=== PATIENT | male | born 1955 | race Caucasian/White ===

== ENCOUNTER → 2016-03-22 | Outpatient (CLI) | payer BC | END | disposition home or self-care (01) | LOC: LABWHC1 12:12 | PROVIDERS: ATTEND Physician Assistant | DX: R53.83 Other fatigue (principal) | CPT/HCPCS: 36415; 84439; 84443 ==

== ENCOUNTER → 2016-11-23 | Outpatient (CLI) | payer BC ==
--- NOTE | 2016-11-24 15:36 | PE ---
EXAMINATION TYPE: PET CT fusion whole body DATE OF EXAM: 11/23/2016 COMPARISON: No additional images available at this location. Prior PET/CT: None HISTORY: Colorectal cancer TECHNIQUE: Following the intravenous administration of 13.26 mCi of F-18 FDG, whole body images are performed from the skull base to the midthigh. Images are reviewed on the computer in the coronal, a xial, and sagittal planes. Reconstructed rotating images are created on independent workstation and reviewed on the computer. A localization and attenuation correction CT is performed in conjunction with the PET scan. DLP: 407.70 mGycm SCAN: Initial Blood glucose: 75 mg/dL Average Mediastinum SUV: 1.2 Average Liver SUV: 1.8 FINDINGS: NECK: Some mild inflammatory changes within the facet hypertrophy in the upper cervical spine. THORAX: There is a small lymph node with mild increased uptake within the pretracheal space, at image 95. The SUV value is 1.6 which is intermediate and can be inflammatory. Additional similar peribronc hial mild uptake is present on the left measuring 2.1 on the right measuring 1.9. A mild right hilar uptake has an SUV value 1.8. ABDOMEN: No abnormal uptake PELVIS: There is marked increased uptake in the distal rectosigmoid region. This can be compatible wi th the patient's neoplasm. This has an SUV value of 8.6. Suspicious adenopathy is not identified. OSSEOUS STRUCTURES: No abnormal uptake LOCALIZATION CT: There is opacification of the right maxillary sinus. Facet changes are within the ce rvical spine. There are scattered small lymph nodes within the mediastinum and within the left axilla ry region. These are nonspecific and not enlarged by CT criteria. Monitoring is recommended. Coronary artery calcification is noted. Some pneumonitis changes in the posterior right lung base can be comp ressive atelectasis. The irregular thickening along the rectosigmoid junction likely related to patie nt's neoplasm is evident on the CT pelvis. COMPARISON: Not available IMPRESSION: 1. 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 2. Some vague intermediate signal within mediastinal and hilar lymph nodes within the chest most like ly in the inflammatory range. 3. Additional suspicious areas of uptake are not identified. No suspicious changes for metastatic dis ease are evident.
== END | disposition home or self-care (01) ==
LOC: RADPETMAIN 12:38
PROVIDERS: ATTEND Surgery
DX: C18.9 Malignant neoplasm of colon, unspecified (principal); R59.0 Localized enlarged lymph nodes; R94.8 Abnormal results of function studies of other organs and systems
CPT/HCPCS: 78816; A9552

== ENCOUNTER → 2020-01-25 | Outpatient (CLI) | payer MEDICARE ==
[2020-01-25 13:28] LABS: African American GFR (CKD) >90 (>60 ml/min/1.73 sqM); Blood Urea Nitrogen 14 mg/dL (9-20); Non-African American GFR(CKD) >90 (>60 ml/min/1.73 sqM)
--- NOTE | 2020-01-25 15:14 | CT ---
EXAMINATION TYPE: CT ChestAbdPelvis w con DATE OF EXAM: 01/25/2020 COMPARISON: PET/CT November 23, 2016 HISTORY: Rectal CA CT DLP: 777.7 mGycm. Automated Exposure Control for Dose Reduction was Utilized. CONTRAST: CT scan of the thorax, abdomen and pelvis is performed with oral and with IV Contrast, patient inject ed with 100 mL of Isovue 300. FINDINGS: LUNGS: Mild biapical scarring. Some dependent atelectasis in the right lower lobe. No suspicious nodu les or masses. There is no pleural effusion or pneumothorax seen. The tracheobronchial tree is paten t. MEDIASTINUM: There are persistent prominent thoracic lymph nodes including pretracheal, AP window chris r axial image 27, pericarinal region axial image 28, and bilateral hilar regions not significantly ch anged in size from prior PET/CT where they are essentially ametabolic. Normal enlarging lymph nodes clearly identified. No cardiomegaly or pericardial effusion is seen. Fairly moderate coronary artery calcification redemonstrated. Stable enlarged 1.2 x 1.0 cm lymph node anterior to ascending aorta axi al image 31. LIVER/GB: Scattered simple-appearing thin-walled cysts throughout the liver redemonstrated. Subcentim eter hypodense lesions also noted to small to further characterize likely stable. Liver is background heterogeneously low dense suggesting diffuse fatty infiltration. PANCREAS: No significant abnormality is seen. SPLEEN: Prominent splenule inferior splenic hilum axial image 66 redemonstrated.. ADRENALS: No significant abnormality is seen. KIDNEYS: Symmetric cortical medullary uptake and excretion without hydronephrosis seen bilaterally. BOWEL: Oral contrast reaches level of the proximal to mid left colon. No suspicious small or large yohana wel dilatation. Interval partial colectomy with reanastomosis at level of the sigmoid rectal colon on axial image 110. GENITAL ORGANS: No gross abnormality seen. LYMPH NODES: No new greater than 1cm abdominal or pelvic lymph nodes are appreciated. Few prominent b ut subcentimeter retroperitoneal lymph nodes redemonstrated represent subcentimeter lymph node (3 ass essment 83 is unchanged from prior PET/CT. OSSEOUS STRUCTURES: Aias-os-mgrifwvu multilevel facet arthropathy in the lower lumbar spine. Mild-to- moderate multilevel spurring of the thoracolumbar spine. OTHER: Narrowneck fat-containing umbilical hernia containing tiny mesenteric vessels redemonstrated. Partial visualization of moderate to large sized right scrotal fluid collection or hydrocele. This is increased in size from 2017 PET/CT. IMPRESSION: Interval successful surgical resection of rectosigmoid neoplasm. No new suspicious mass or adenopathy to suggest neoplastic recurrence.
== END | disposition home or self-care (01) ==
LOC: RADCTMAIN 12:24
PROVIDERS: ATTEND Internal Medicine Hematology & Oncology
DX: C20 Malignant neoplasm of rectum (principal); Z98.890 Other specified postprocedural states
CPT/HCPCS: 82565; 84520; 71260; 74177; 36415; Q9967

== ENCOUNTER → 2020-07-25 | Outpatient (CLI) | payer MEDICARE ==
[2020-07-25 11:08] LABS: African American GFR (CKD) >90 (>60 ml/min/1.73 sqM); Blood Urea Nitrogen 14 mg/dL (9-20); Non-African American GFR(CKD) >90 (>60 ml/min/1.73 sqM)
--- NOTE | 2020-07-25 13:09 | CT ---
EXAMINATION TYPE: CT ChestAbdPelvis w con DATE OF EXAM: 07/25/2020 COMPARISON: 01/25/2020 HISTORY: Rectal cancer, observation for mets CT DLP: 857.90 mGycm Automated exposure control for dose reduction was used. CONTRAST: CT scan of the chest, abdomen and pelvis is performed with Oral Contrast and with IV Contrast, patien t injected with 100 ml mL of Isovue 300. FINDINGS: LUNGS: No sizable pulmonary nodule. Biapical pleural thickening noted. Localized areas of interstitia l prominence may represent interstitial lung disease. No pleural effusion or pneumothorax.. MEDIASTINUM: There is a 1.4 centimeter short axis nodule seen in the right hilum posterior to the rig ht main pulmonary artery axial image 36 cm in size compared to the prior exam.. Stable additional nolan tty adenopathy as previously measured in the mediastinum and right hilum. Coronary artery calcificati on noted. Heart size normal. No pericardial effusion is seen. OTHER: No additional significant abnormality is seen. LIVER/GB: Multiple hypodensities are seen within the liver some of which are too small to characteriz e but statistically most likely related to simple cysts. Largest measures 15 Hounsfield units within the left lobe of the liver and 1.4 cm. PANCREAS: No significant abnormality is seen. SPLEEN: No significant abnormality is seen. ADRENALS: No significant abnormality is seen. KIDNEYS: No significant abnormality is seen. BOWEL: There is localized thickening of the wall the right colon. LYMPH NODES: No greater than 1 cm abdominal or pelvic lymph nodes are appreciated. OSSEOUS STRUCTURES: Hypertrophic and degenerative changes of the spine. Severe arthropathy of the hip s bilaterally. OTHER: Fat-containing periumbilical hernia. IMPRESSION: 1. There is localized wall thickening of the right colon. Recommend colonoscopy to assess for mucosal lesion. 2. Stable hepatic lesions likely related to hepatic cysts. 3. There is a pathologic lymph node in the right perihilar region posterior to the right main pulmona ry artery axial image 36 measuring 1.4 cm in short axis and previously measuring 1.3 cm in short axis .
== END | disposition home or self-care (01) ==
LOC: RADCTMAIN 10:28
PROVIDERS: ATTEND Internal Medicine Hematology & Oncology
DX: C20 Malignant neoplasm of rectum (principal); K63.89 Other specified diseases of intestine; K76.9 Liver disease, unspecified
CPT/HCPCS: 82565; 84520; 71260; 74177; 36415; Q9967

== ENCOUNTER 2021-01-17 07:01 | Inpatient (IN) | payer MEDICARE ==
[2021-01-17] MEDS ORDERED: ONDANSETRON 4 MG/2 ML VIAL IVP STA (07:31)
[2021-01-17] MEDS ORDERED: SODIUM CHLORIDE 0.9% 1,000 ML IV STA (07:31)
[2021-01-17] MEDS ORDERED: MORPHINE SULFATE 4 MG/ML SYRINGE IV STA (07:31)
--- NOTE | 2021-01-17 07:44 | ED ---
General Adult HPI - General Chief complaint: Abdominal Pain Stated complaint: Abd Pain Time Seen by Provider: 01/17/21 07:17 Source: patient, RN notes reviewed, old records reviewed Mode of arrival: ambulatory Limitations: no limitations - History of Present Illness Initial comments: 65-year-old male presenting with abdominal pain, vomiting. Patient has not had a bowel movement since Friday. He's had vomiting with everything that he eats or drinks over this time course. He's had pain right above his umbilicus. He has previous history of colonic resection and colon cancer. This was at an outside facility. No cough or fever. - Related Data Home Medications Medication Instructions Recorded Confirmed Esomeprazole Magnesium [NexIUM 20 mg PO DAILY 01/17/21 01/17/21 24Hr] Flaxseed Oil 1,000 mg PO DAILY 01/17/21 01/17/21 Multivitamins, Thera [Multivitamin 1 tab PO DAILY 01/17/21 01/17/21 (formulary)] [place]-3 Fatty Acids/Fish Oil [Fish 1 cap PO DAILY 01/17/21 01/17/21 Oil 1,000 mg Softgel] Yeast And Fungal Oral Supplement 1 cap PO DAILY 01/17/21 01/17/21 lisinopriL 30 mg PO DAILY 01/17/21 01/17/21 Allergies Allergy/AdvReac Type Severity Reaction Status Date / Time No Known Allergies Allergy Verified 01/17/21 10:11 Review of Systems ROS Statement: Those systems with pertinent positive or pertinent negative responses have been documented in the HPI. ROS Other: All systems not noted in ROS Statement are negative. Past Medical History Past Medical History: Cancer, Hypertension Additional Past Medical History / Comment(s): colostomy reversal Past Surgical History: Bowel Resection Past Psychological History: No Psychological Hx Reported Smoking Status: Former smoker Past Alcohol Use History: None Reported Past Drug Use History: None Reported General Exam Limitations: no limitations General appearance: alert, in no apparent distress Head exam: Present: atraumatic, normocephalic Eye exam: Present: normal appearance, PERRL ENT exam: Present: mucous membranes dry Neck exam: Present: normal inspection. Absent: tenderness, meningismus Respiratory exam: Present: normal lung sounds bilaterally. Absent: respiratory distress, wheezes Cardiovascular Exam: Present: regular rate, normal rhythm GI/Abdominal exam: Present: soft, distended, tenderness, hernia (Incarcerated umbilical hernia) Extremities exam: Present: normal inspection, normal capillary refill. Absent: pedal edema Neurological exam: Present: alert, oriented X3, CN II-XII intact. Absent: motor sensory deficit Psychiatric exam: Present: normal affect, normal mood Skin exam: Present: warm, dry, intact. Absent: cyanosis, diaphoretic Course Vital Signs 01/17/21 01/17/21 07:11 09:53 Temperature 96.6 F L Pulse Rate 103 H 80 Respiratory 18 18 Rate Blood Pressure 96/68 139/80 O2 Sat by Pulse 96 97 Oximetry Medical Decision Making - Medical Decision Making 65-year-old male presenting with 3 days of nausea vomiting, no bowel movement, abdominal pain. He has a hernia present on exam with tenderness just above the umbilicus. He is mildly distended. No rebound or guarding. Workup is initiated, he has a mild leukocytosis 11.7. He is hemoconcentrated with hemoglobin of 18.8. Normal lactic acid, normal electrolytes. CT performed shows an incarcerated umbilical hernia with small bowel obstruction. I did discuss case with Dr. Baumann, who will accept admission. Patient will be NPO, NG tube will be placed in the emergency department. - Lab Data Result diagrams: 01/17/21 07:43 01/17/21 07:43 Lab Results 01/17/21 01/17/21 01/17/21 Range/Units 07:43 07:43 07:43 WBC 11.7 H (3.8-10.6) k/uL RBC 6.23 H (4.30-5.90) m/uL Hgb 18.8 H (13.0-17.5) gm/dL Hct 54.2 H (39.0-53.0) % MCV 86.9 (80.0-100.0) fL MCH 30.2 (25.0-35.0) pg MCHC 34.8 (31.0-37.0) g/dL RDW 12.4 (11.5-15.5) % Plt Count 320 (150-450) k/uL MPV 7.3 Neutrophils % 84 % Lymphocytes % 7 % Monocytes % 7 % Eosinophils % 1 % Basophils % 0 % Neutrophils # 9.9 H (1.3-7.7) k/uL Lymphocytes # 0.8 L (1.0-4.8) k/uL Monocytes # 0.8 (0-1.0) k/uL Eosinophils # 0.1 (0-0.7) k/uL Basophils # 0.0 (0-0.2) k/uL PT (9.0-12.0) sec INR (<1.2) APTT (22.0-30.0) sec Sodium 136 L (137-145) mmol/L Potassium 4.4 (3.5-5.1) mmol/L Chloride 98 (98-107) mmol/L Carbon Dioxide 25 (22-30) mmol/L Anion Gap 13 mmol/L BUN 25 H (9-20) mg/dL Creatinine 1.00 (0.66-1.25) mg/dL Est GFR (CKD-EPI)AfAm >90 (>60 ml/min/1.73 sqM) Est GFR (CKD-EPI)NonAf 78 (>60 ml/min/1.73 sqM) Glucose 120 H (74-99) mg/dL Plasma Lactic Acid Andrea 1.6 (0.7-2.0) mmol/L Calcium 10.2 (8.4-10.2) mg/dL Total Bilirubin 1.8 H (0.2-1.3) mg/dL AST 38 (17-59) U/L ALT 39 (4-49) U/L Alkaline Phosphatase 89 (38-126) U/L Total Protein 7.7 (6.3-8.2) g/dL Albumin 4.6 (3.5-5.0) g/dL Amylase 65 (30-110) U/L Lipase 172 (23-300) U/L 01/17/21 Range/Units 09:38 WBC (3.8-10.6) k/uL RBC (4.30-5.90) m/uL Hgb (13.0-17.5) gm/dL Hct (39.0-53.0) % MCV (80.0-100.0) fL MCH (25.0-35.0) pg MCHC (31.0-37.0) g/dL RDW (11.5-15.5) % Plt Count (150-450) k/uL MPV Neutrophils % % Lymphocytes % % Monocytes % % Eosinophils % % Basophils % % Neutrophils # (1.3-7.7) k/uL Lymphocytes # (1.0-4.8) k/uL Monocytes # (0-1.0) k/uL Eosinophils # (0-0.7) k/uL Basophils # (0-0.2) k/uL PT 10.6 (9.0-12.0) sec INR 1.0 (<1.2) APTT 22.7 (22.0-30.0) sec Sodium (137-145) mmol/L Potassium (3.5-5.1) mmol/L Chloride (98-107) mmol/L Carbon Dioxide (22-30) mmol/L Anion Gap mmol/L BUN (9-20) mg/dL Creatinine (0.66-1.25) mg/dL Est GFR (CKD-EPI)AfAm (>60 ml/min/1.73 sqM) Est GFR (CKD-EPI)NonAf (>60 ml/min/1.73 sqM) Glucose (74-99) mg/dL Plasma Lactic Acid Andrea (0.7-2.0) mmol/L Calcium (8.4-10.2) mg/dL Total Bilirubin (0.2-1.3) mg/dL AST (17-59) U/L ALT (4-49) U/L Alkaline Phosphatase (38-126) U/L Total Protein (6.3-8.2) g/dL Albumin (3.5-5.0) g/dL Amylase (30-110) U/L Lipase (23-300) U/L Disposition Clinical Impression: Incarcerated umbilical hernia, Small bowel obstruction Disposition: ADMITTED IP TO THIS [facility] Condition: Stable Is patient prescribed a controlled substance at d/c from ED?: No Referrals: Juancarlos Whitaker MD [Primary Care Provider] - 1-2 days Decision to Admit Reason: Admit from EC Decision Date: 01/17/21 Decision Time: 10:24
[2021-01-17 08:28] LABS: Basophils % (A) 0 %; Eosinophils # (A) 0.1 k/uL (0-0.7); Eosinophils % (A) 1 %; HCT 54.2 % (39.0-53.0); HGB 18.8 gm/dL (13.0-17.5); Lymphocytes # (A) 0.8 k/uL (1.0-4.8); Lymphocytes % (A) 7 %; MCH 30.2 pg (25.0-35.0); MCHC 34.8 g/dL (31.0-37.0); MCV 86.9 fL (80.0-100.0); Mean Platelet Volume 7.3; Monocytes # (A) 0.8 k/uL (0-1.0); Monocytes % (A) 7 %; Neutrophils # (A) 9.9 k/uL (1.3-7.7); Neutrophils % (A) 84 %; Platelet Count 320 k/uL (150-450); RBC 6.23 m/uL (4.30-5.90); RDW 12.4 % (11.5-15.5); WBC 11.7 k/uL (3.8-10.6)
[2021-01-17 08:44] LABS: ALT 39 U/L (4-49); AST 38 U/L (17-59); African American GFR (CKD) >90 (>60 ml/min/1.73 sqM); Albumin 4.6 g/dL (3.5-5.0); Alkaline Phosphatase 89 U/L (38-126); Amylase 65 U/L (30-110); Anion Gap 13 mmol/L; Blood Urea Nitrogen 25 mg/dL (9-20); Calcium 10.2 mg/dL (8.4-10.2); Carbon Dioxide 25 mmol/L (22-30); Chloride 98 mmol/L (98-107); Glucose 120 mg/dL (74-99); Lipase 172 U/L (23-300); Non-African American GFR(CKD) 78 (>60 ml/min/1.73 sqM); Potassium 4.4 mmol/L (3.5-5.1); Sodium 136 mmol/L (137-145); Total Bilirubin 1.8 mg/dL (0.2-1.3); Total Protein 7.7 g/dL (6.3-8.2)
--- NOTE | 2021-01-17 09:36 | CT ---
EXAMINATION TYPE: CT abdomen pelvis w con DATE OF EXAM: 01/17/2021 COMPARISON: 07/25/2020 HISTORY: periumbilical pain, hernia CT DLP: 954.1 mGycm CONTRAST: CT scan of the abdomen and pelvis is performed without Oral Contrast and with IV Contrast, patient in jected with 100 mL of Isovue 300. FINDINGS: LUNG BASES-: No visible nodule. No infiltrate. LIVER/GB: No calcified gallstones. Hepatic steatosis with scattered cystic lesions. Biliary tree i s of normal caliber. PANCREAS: No inflammation. No distinct mass. SPLEEN: No splenic enlargement. No lesion seen. ADRENALS: No nodule. No thickening. KIDNEYS/BLADDER: Incarcerated umbilical hernia with a segment of small bowel. Resultant small bowel o bstruction and dilatation measuring up to 3.9 cm. decompressed distal small bowel. Large bowel is nor mal caliber. No evidence for perforation or abscess. BOWEL: Normal appendix. Normal bowel caliber. No inflammation. GENITAL ORGANS: No gross abnormality. LYMPH NODES: No greater than 1cm abdominal or pelvic lymph nodes are appreciated. AORTA: No significant abnormality. OSSEOUS STRUCTURES: No significant abnormality is seen. OTHER: No significant additional abnormality is seen. IMPRESSION: 1. Incarcerated umbilical hernia with a segment of small bowel. Resultant small bowel obstruction and dilatation measuring up to 3.9 cm.
[2021-01-17 10:00] LABS: Partial Thromboplastin Time 22.7 sec (22.0-30.0); Prothrombin Time 10.6 sec (9.0-12.0)
[2021-01-17] MEDS ORDERED: NALOXONE 0.4 MG/ML 1 ML VIAL IV PRN (10:21)
[2021-01-17] MEDS: SODIUM CHLORIDE 0.9% 1,000 ML IV SCH ×2 (11:25→21:21)
[2021-01-17] MEDS: PANTOPRAZOLE 40 MG/10 ML VIAL IV SCH (11:26)
--- NOTE | 2021-01-17 13:17 | P.GSHP ---
History of Present Illness H&P Date: 01/17/21 Patient had recent scrotal surgery July 2020 and try to [facility]. Also had prior colectomy and colostomy reversal in 2018. Patient is being followed by oncologist. Recent computed tomography scan 6 months ago demonstrated umbilical hernia. Patient reports four-day history of incarcerated umbilical hernia. Patient has feculent emesis. NG tube placed. Patient has severe dehydration. Recommend IV fluid hydration. Bowel rest. Surgical intervention described including small bowel resection for incarcerated ventral hernia with bowel obstruction. Inpatient hospitalization described Past Medical History Past Medical History: Cancer, Hypertension Additional Past Medical History / Comment(s): colostomy reversal Past Surgical History: Bowel Resection Past Psychological History: No Psychological Hx Reported Smoking Status: Former smoker Past Alcohol Use History: None Reported Past Drug Use History: None Reported Medications and Allergies Home Medications Medication Instructions Recorded Confirmed Type Esomeprazole Magnesium [NexIUM 20 mg PO DAILY 01/17/21 01/17/21 History 24Hr] Flaxseed Oil 1,000 mg PO DAILY 01/17/21 01/17/21 History Multivitamins, Thera [Multivitamin 1 tab PO DAILY 01/17/21 01/17/21 History (formulary)] [place]-3 Fatty Acids/Fish Oil [Fish 1 cap PO DAILY 01/17/21 01/17/21 History Oil 1,000 mg Softgel] Yeast And Fungal Oral Supplement 1 cap PO DAILY 01/17/21 01/17/21 History lisinopriL 30 mg PO DAILY 01/17/21 01/17/21 History Allergies Allergy/AdvReac Type Severity Reaction Status Date / Time No Known Allergies Allergy Verified 01/17/21 10:11 Surgical - Exam Vital Signs Temp Pulse Resp BP Pulse Ox 96.6 F L 103 H 18 96/68 96 01/17/21 07:11 01/17/21 07:11 01/17/21 07:11 01/17/21 07:11 01/17/21 07:11 Results - Labs 01/17/21 07:43 01/17/21 07:43 Abnormal Lab Results - Last 24 Hours (Table) 01/17/21 01/17/21 Range/Units 07:43 07:43 WBC 11.7 H (3.8-10.6) k/uL RBC 6.23 H (4.30-5.90) m/uL Hgb 18.8 H (13.0-17.5) gm/dL Hct 54.2 H (39.0-53.0) % Neutrophils # 9.9 H (1.3-7.7) k/uL Lymphocytes # 0.8 L (1.0-4.8) k/uL Sodium 136 L (137-145) mmol/L BUN 25 H (9-20) mg/dL Glucose 120 H (74-99) mg/dL Total Bilirubin 1.8 H (0.2-1.3) mg/dL Diabetes panel 01/17/21 Range/Units 07:43 Sodium 136 L (137-145) mmol/L Potassium 4.4 (3.5-5.1) mmol/L Chloride 98 (98-107) mmol/L Carbon Dioxide 25 (22-30) mmol/L BUN 25 H (9-20) mg/dL Creatinine 1.00 (0.66-1.25) mg/dL Glucose 120 H (74-99) mg/dL Calcium 10.2 (8.4-10.2) mg/dL AST 38 (17-59) U/L ALT 39 (4-49) U/L Alkaline Phosphatase 89 (38-126) U/L Total Protein 7.7 (6.3-8.2) g/dL Albumin 4.6 (3.5-5.0) g/dL Calcium panel 01/17/21 Range/Units 07:43 Calcium 10.2 (8.4-10.2) mg/dL Albumin 4.6 (3.5-5.0) g/dL Pituitary panel 01/17/21 Range/Units 07:43 Sodium 136 L (137-145) mmol/L Potassium 4.4 (3.5-5.1) mmol/L Chloride 98 (98-107) mmol/L Carbon Dioxide 25 (22-30) mmol/L BUN 25 H (9-20) mg/dL Creatinine 1.00 (0.66-1.25) mg/dL Glucose 120 H (74-99) mg/dL Calcium 10.2 (8.4-10.2) mg/dL Adrenal panel 01/17/21 Range/Units 07:43 Sodium 136 L (137-145) mmol/L Potassium 4.4 (3.5-5.1) mmol/L Chloride 98 (98-107) mmol/L Carbon Dioxide 25 (22-30) mmol/L BUN 25 H (9-20) mg/dL Creatinine 1.00 (0.66-1.25) mg/dL Glucose 120 H (74-99) mg/dL Calcium 10.2 (8.4-10.2) mg/dL Total Bilirubin 1.8 H (0.2-1.3) mg/dL AST 38 (17-59) U/L ALT 39 (4-49) U/L Alkaline Phosphatase 89 (38-126) U/L Total Protein 7.7 (6.3-8.2) g/dL Albumin 4.6 (3.5-5.0) g/dL
[2021-01-17] MEDS: ONDANSETRON 4 MG/2 ML VIAL IVP PRN (14:06)
[2021-01-17 16:00] LABS: Amorphous Sediment,Urine Rare /hpf; Appearance,Urine Clear (Clear); Bilirubin,Urine Negative (Negative); Blood,Urine Negative (Negative); Color,Urine Yellow; Glucose,Urine (UA) Negative (Negative); Hyaline Casts,Urine 4 /lpf (0-2); Ketones,Urine 3+ (Negative); Leukocyte Esterase,Urine Negative (Negative); Mucus,Urine Few /hpf; Nitrite,Urine Negative (Negative); Protein,Urine 1+ (Negative); RBC,Urine 1 /hpf (0-5); Urobilinogen,Urine <2.0 mg/dL (<2.0); WBC,Urine 3 /hpf (0-5)
[2021-01-17 16:01] LABS: Specific Gravity,Urine >1.050 (1.001-1.035)
[2021-01-18] MEDS: SODIUM CHLORIDE 0.9% 1,000 ML IV SCH ×4 (02:35→23:46)
[2021-01-18] MEDS ORDERED: LIDOCAINE 1% (10MG/ML) FOR IV START INTRADERMA PRN (08:13)
[2021-01-18] MEDS ORDERED: SCOPOLAMINE 1.5MG/72HR PATCH TRANSDERM ONE (08:13)
[2021-01-18] MEDS ORDERED: DEXAMETHASONE SOD PHOSPHATE 4 MG/ML 1 ML VIAL IV ONE (08:13)
[2021-01-18] MEDS: PANTOPRAZOLE 40 MG/10 ML VIAL IV SCH (08:20)
[2021-01-18] MEDS ORDERED: SODIUM CHLORIDE 0.9% 2,000 ML IV ONE (13:28)
[2021-01-18] MEDS: LACTATED RINGERS 1,000 ML IV SCH (14:09)
--- NOTE | 2021-01-18 14:15 | P.PN ---
Subjective Progress Note Date: 01/18/21 CHIEF COMPLAINT: Bowel obstruction HISTORY OF PRESENT ILLNESS: The patient is a 65-year-old male admitted for small bowel obstruction. He presented with severe dehydration. He reports no passage of flatus. Over 1200 mL out of NGT ROS: No bowel movements. No fevers or chills. No new chest pain. No pro ductive sputum PHYSICAL EXAM: VITAL SIGNS: Reviewed CONSTITUTIONAL: Well developed and in no acute distress. EYES: Conjuctivae without sclera icterus. Extraocular movements grossly intact. HEAD, EARS, NOSE, THROAT: Moist buccal mucosa. Head is atraumatic, normocephalic. Hears conversational speech. No nasal drainage. NECK: No thyroidomegaly. RESPIRATORY: Non-labored respirations and equal bilateral excursions. CARDIOVASCULAR: Palpable 2+ radial pulses. ABDOMEN: Incarcerated hernia of the umbilicus without skin changes. MUSCULOSKELETAL: No gross deformity of the lower extremities noted. No clubbing. No cyanosis. SKIN: Good skin turgor. Well perfused. NEUROLOGIC: Cranial nerves I through XII grossly intact. No focal or lateralizing signs. PSYCH: Appropriate affect. Alert and oriented to person, place and time. CLINICAL LABS: Reviewed. WBC 11.9. Labs ordered and pending ASSESSMENT: 1. Incarcerated ventral hernia with small bowel obstruction PLAN: 1. Robotic reduction and repair of incarcerated ventral hernia reviewed with possible small bowel resection 2. IV fluid hydration 3. Medicine consulted for medical management 4. Antibiotics 5. DVT prophylaxis 6. Incentive spirometry 7. GI prophylaxis. Objective - Vital Signs Vital signs: Vital Signs Temp 98 F 01/18/21 11:30 Pulse 78 01/18/21 11:30 Resp 18 01/18/21 11:30 BP 144/80 01/18/21 11:30 Pulse Ox 97 01/18/21 11:30 Intake & Output 01/17/21 01/18/21 01/18/21 18:59 06:59 18:59 Intake Total 1300 Output Total 1200 Balance 100 Weight 77.111 kg 77.111 kg Intake: Intake, IV Titration 1300 Amount Sodium Chloride 0.9% 1, 1300 000 ml @ 130 mls/hr IV . [id number] [facility] Rx#:[id number] Output: Gastric Drainage 1200 Other: Voiding Method Toilet Urinal - Labs CBC & Chem 7: 01/17/21 07:43 01/17/21 07:43 Labs: Abnormal Lab Results - Last 24 Hours (Table) 01/17/21 Range/Units 07:43 Ur Specific [place] >1.050 H (1.001-1.035) Urine Protein 1+ H (Negative) Urine Ketones 3+ H (Negative) Amorphous Sediment Rare H (None) /hpf Hyaline Casts 4 H (0-2) /lpf Urine Mucus Few H (None) /hpf Assessment and Plan (1) Incarcerated umbilical hernia Current Visit: Yes Status: Acute Code(s): K42.0 - UMBILICAL HERNIA WITH OBSTRUCTION, WITHOUT GANGRENE SNOMED Code(s): 012349041 (2) Small bowel obstruction Current Visit: Yes Status: Acute Code(s): K56.609 - UNSP INTESTNL OBST, UNSP TO PARTIAL VERSUS COMPLETE OBST SNOMED Code(s): 038542502
[2021-01-18] MEDS ORDERED: MAG HYDROX/AL HYDROX/SIMETH 30 ML, HYOSCYAMINE ELIXIR 10 ML, LIDOCAINE VISCOUS 2% 10 ML PO ONE ×3 (15:00)
[2021-01-18] MEDS: ENOXAPARIN 30 MG/0.3 ML SYRINGE SQ SCH (15:09)
[2021-01-18] MEDS: CALCIUM CARBONATE 500 MG CHEWABLE PO PRN (15:09)
[2021-01-18] MEDS: MORPHINE SULFATE 4 MG/ML SYRINGE IV PRN ×2 (15:11→23:45)
[2021-01-18] MEDS: PIPERACILLIN-TAZOBACTAM 3.375 GM in SODIUM CHLORIDE 0.9% 100 ML IVPB SCH ×2 (15:52→23:42)
[2021-01-18 18:00] LABS: ALT 30 U/L (4-49); AST 58 U/L (17-59); African American GFR (CKD) >90 (>60 ml/min/1.73 sqM); Albumin 3.4 g/dL (3.5-5.0); Albumin/Globulin Ratio 1.2; Alkaline Phosphatase 44 U/L (38-126); Anion Gap 9 mmol/L; Blood Urea Nitrogen 22 mg/dL (9-20); Carbon Dioxide 15 mmol/L (22-30); Chloride 109 mmol/L (98-107); Globulin 2.8 g/dL; Glucose 77 mg/dL (74-99); Non-African American GFR(CKD) >90 (>60 ml/min/1.73 sqM); Sodium 133 mmol/L (137-145); Total Bilirubin 1.6 mg/dL (0.2-1.3); Total Protein 6.2 g/dL (6.3-8.2)
[2021-01-18 18:04] LABS: Basophils % (A) 0 %; Eosinophils % (A) 0 %; HCT 44.7 % (39.0-53.0); Lymphocytes # (A) 0.8 k/uL (1.0-4.8); Lymphocytes % (A) 11 %; MCH 30.2 pg (25.0-35.0); MCHC 34.6 g/dL (31.0-37.0); MCV 87.3 fL (80.0-100.0); Mean Platelet Volume 7.3; Monocytes # (A) 0.7 k/uL (0-1.0); Monocytes % (A) 9 %; Neutrophils # (A) 5.9 k/uL (1.3-7.7); Neutrophils % (A) 78 %; Platelet Count 263 k/uL (150-450); Potassium 5.6 mmol/L (3.5-5.1); RBC 5.12 m/uL (4.30-5.90); RDW 12.4 % (11.5-15.5); WBC 7.7 k/uL (3.8-10.6)
[2021-01-18 18:05] LABS: HGB 15.5 gm/dL (13.0-17.5)
[2021-01-19] MEDS ORDERED: INSULIN REGULAR 100 UNIT/ML VIAL (IV) IV ONE (00:20)
[2021-01-19] MEDS ORDERED: DEXTROSE 50% SYRINGE 50 ML IVP STA (00:20)
--- NOTE | 2021-01-19 04:35 | P.CONS ---
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 However since Friday he noticed that there is a lump above his umbilical region that became more tender as the days progressed he started having abdominal pain feeling weak and tired repeated nausea vomiting no bowel movement no passing gas. He denies any GI bleeding the. For which she decided to come in for evaluation on Friday. He was diagnosed with incarcerated umbilical hernia admitted to surgery He is currently laid comfortable but denies any chest pain or trouble breathing denies any palpitations denies any fevers or chills he has NG tube in place tolerating well. He reports that pain is controlled with pain medications. Denies passing any gas as her bowel movement. He had recent surgery back in July 2020 for hydrocele Review of Systems Pertinent positives as noted in HPI. All other systems were reviewed and are negative Past Medical History Past Medical History: Cancer, Hypertension Additional Past Medical History / Comment(s): colan cancer, hydrocell, colostomy reversal History of Any Multi-Drug Resistant Organisms: None Reported Past Surgical History: Bowel Resection Past Anesthesia/Blood Transfusion Reactions: No Reported Reaction Past Psychological History: No Psychological Hx Reported Smoking Status: Former smoker Past Alcohol Use History: None Reported Past Drug Use History: None Reported Medications and Allergies Home Medications Medication Instructions Recorded Confirmed Type Esomeprazole Magnesium [NexIUM 20 mg PO DAILY 01/17/21 01/17/21 History 24Hr] Flaxseed Oil 1,000 mg PO DAILY 01/17/21 01/17/21 History Multivitamins, Thera [Multivitamin 1 tab PO DAILY 01/17/21 01/17/21 History (formulary)] Chandler-3 Fatty Acids/Fish Oil [Fish 1 cap PO DAILY 01/17/21 01/17/21 History Oil 1,000 mg Softgel] Yeast And Fungal Oral Supplement 1 cap PO DAILY 01/17/21 01/17/21 History lisinopriL 30 mg PO DAILY 01/17/21 01/17/21 History Allergies Allergy/AdvReac Type Severity Reaction Status Date / Time No Known Allergies Allergy Verified 01/17/21 10:11 Physical Exam Vitals: Vital Signs Temp Pulse Resp BP Pulse Ox 01/18/21 20:03 97.8 F 76 16 160/84 93 L 01/18/21 19:55 16 01/18/21 11:30 98 F 78 18 144/80 97 01/18/21 05:40 97.7 F 60 20 126/76 97 Intake and Output 01/18/21 01/18/21 01/18/21 06:59 14:59 22:59 Intake Total 1300 3270 Output Total 1200 1200 Balance 100 2070 Intake: Intake, IV Titration 1300 3270 Amount Piperacillin-Tazobactam 3 100 .375 gm In Sodium Chloride 0.9% 100 ml @ 25 mls/hr IVPB Q8HR [facility] Rx# :[id number] Sodium Chloride 0.9% 1, 1300 1170 000 ml @ 130 mls/hr IV . Q7H42M [facility] Rx#:[id number] Sodium Chloride 0.9% 2, 2000 000 ml @ 999 mls/hr IV . Q2H1M [facility] Rx#:[id number] Output: Gastric Drainage 1200 1200 Other: Voiding Method Toilet Urinal Constitutional: No acute distress, conversant, pleasant, NG tube in place Eyes: Anicteric sclerae, moist conjunctiva, Pupils equal round reactive to light ENMT: NC/AT Oropharynx clear, no erythema, or exudates Neck: Supple, FROM, no masses, or JVD No carotid bruits No thyromegaly Lungs: Clear to auscultation Clear to percussion Normal respiratory effort, no accessory muscle use Cardiovascular: Heart regular in rate and rhythm, No murmurs, gallops, or rubs No peripheral edema Abdominal: Soft, no abdominal distention Palpable hard nodule in the periumbilical region tender to palpation, no guarding, rebound or rigidity Abdomen moving with respiration Normoactive bowel sounds No hepatomegaly, No splenomegaly No palpable mass No abdominal wall hernia noted Skin: Normal temperature, tone, texture, turgor No induration No subcutaneous nodules No rash, lesions No ulcers Extremities: No digital cyanosis No clubbing Pedal pulses intact and symmetrical Radial pulses intact and symmetrical No calf tenderness Psychiatric: Alert and oriented to person, place and time Appropriate affect fair judgement Neuro Muscles Strength 4/5 in all 4 extremities Sensation to light touch grossly present throughout Cranial nerves II-XII grossly intact No focal sensory deficits Lymphatics: no palpable cervical or supraclavicular , or inguinal lymph nodes Results CBC & Chem 7: 01/18/21 17:27 01/18/21 17:27 Labs: Abnormal Lab Results - Last 24 Hours (Table) 01/18/21 01/18/21 Range/Units 17:27 17:27 Lymphocytes # 0.8 L (1.0-4.8) k/uL Sodium 133 L (137-145) mmol/L Potassium 5.6 H (3.5-5.1) mmol/L Chloride 109 H (98-107) mmol/L Carbon Dioxide 15 L (22-30) mmol/L BUN 22 H (9-20) mg/dL Calcium 8.0 L (8.4-10.2) mg/dL Total Bilirubin 1.6 H (0.2-1.3) mg/dL Total Protein 6.2 L (6.3-8.2) g/dL Albumin 3.4 L (3.5-5.0) g/dL Assessment and Plan Assessment: Incarcerated umbilical hernia with small bowel obstruction Report of fecal emesis Follow-up surgery recommendations Supportive care NG tube for decompression Pain control IV fluid hydration Abdominal CT confirmed diagnosis Continue Zosyn Hyperkalemia Patient given potassium lowering cocktail insulin and D50 Follow-up potassium level after 4 hours DVT prophylaxis Lovenox subcu Patient is full code Hypertension continue with lisinopril Thank you for allowing us to participate in the care of this patient. Do not hesitate to contact us with questions. Someone can be reached from the [facility] hospitalist group at all hours of the day at [phone].
[2021-01-19] MEDS: ONDANSETRON 4 MG/2 ML VIAL IVP PRN (04:45)
[2021-01-19 06:51] LABS: African American GFR (CKD) >90 (>60 ml/min/1.73 sqM); Anion Gap 9 mmol/L; Blood Urea Nitrogen 19 mg/dL (9-20); Calcium 8.4 mg/dL (8.4-10.2); Carbon Dioxide 23 mmol/L (22-30); Chloride 106 mmol/L (98-107); Glucose 73 mg/dL (74-99); Non-African American GFR(CKD) >90 (>60 ml/min/1.73 sqM); Potassium 3.5 mmol/L (3.5-5.1); Sodium 138 mmol/L (137-145)
[2021-01-19] MEDS ORDERED: HYDROmorphone 0.5 MG/0.5 ML SYRINGE IVP PRN (07:00)
[2021-01-19] MEDS ORDERED: IV FLUID CONTINUATION 450 ML IV ONE (07:05)
[2021-01-19] MEDS ORDERED: HEPARIN SODIUM,PORCINE/PF 5,000 UNIT/0.5 ML SYRINGE SQ ONE (07:38)
--- NOTE | 2021-01-19 07:44 | P.PN ---
Subjective Progress Note Date: 01/19/21 CHIEF COMPLAINT: Bowel obstruction HISTORY OF PRESENT ILLNESS: The patient is a 65-year-old male admitted for small bowel obstruction. He has had no passage of flatus. Does report periumbilical pain. ROS: No bowel movements. No fevers or chills. No new chest pain. No productive sputum PHYSICAL EXAM: VITAL SIGNS: Reviewed CONSTITUTIONAL: Well developed and in no acute distress. EYES: Conjuctivae without sclera icterus. Extraocular movements grossly intact. HEAD, EARS, NOSE, THROAT: Moist buccal mucosa. Head is atraumatic, normocephalic. Hears conversational speech. No nasal drainage. NECK: No thyroidomegaly. RESPIRATORY: Non-labored respirations and equal bilateral excursions. CARDIOVASCULAR: Palpable 2+ radial pulses. ABDOMEN: Incarcerated hernia of the umbilicus, without reduction. No peritonitis. MUSCULOSKELETAL: No gross deformity of the lower extremities noted. No clubb ing. No cyanosis. SKIN: Good skin turgor. Well perfused. NEUROLOGIC: Cranial nerves I through XII grossly intact. No focal or lateralizing signs. PSYCH: Appropriate affect. Alert and oriented to person, place and time. CLINICAL LABS: Reviewed. WBC 11.9 with leukocytosis and now normal at 7.7. Hemoglobin down 18.9-15.5, hemoconcentration. Potassium down 5.3-3.5, hemoglobin ASSESSMENT: 1. Incarcerated ventral hernia with small bowel obstruction 2. Hemoconcentration due to dehydration PLAN: 1. Will proceed with robotic umbilical hernia repair possible small bowel resection 2. Continue nasogastric tube Objective - Vital Signs Vital signs: Vital Signs Temp 98.0 F 01/19/21 07:07 Pulse 69 01/19/21 07:07 Resp 16 01/19/21 07:07 BP 157/86 01/19/21 07:07 Pulse Ox 97 01/19/21 07:07 Intake & Output 01/18/21 01/19/21 01/19/21 18:59 06:59 18:59 Intake Total 3270 1600 Output Total 2000 Balance 3270 -400 Intake: Intake, IV Titration 3270 1600 Amount Piperacillin-Tazobactam 3 100 100 .375 gm In Sodium Chloride 0.9% 100 ml @ 25 mls/hr IVPB Q8HR REPLACED BY [facility] Rx# :[id number] Sodium Chloride 0.9% 1, 1170 1500 000 ml @ 130 mls/hr IV . Q7H42M REPLACED BY [facility] Rx#:[id number] Sodium Chloride 0.9% 2, 2000 000 ml @ 999 mls/hr IV . Q2H1M [facility] Rx#:[id number] Output: Gastric Drainage 1999 Other: Voiding Method Toilet Urinal # Voids 5 - Labs CBC & Chem 7: 01/18/21 17:27 01/19/21 05:49 Labs: Abnormal Lab Results - Last 24 Hours (Table) 01/18/21 01/18/21 01/19/21 Range/Units 17:27 17:27 05:49 Lymphocytes # 0.8 L (1.0-4.8) k/uL Sodium 133 L (137-145) mmol/L Potassium 5.6 H (3.5-5.1) mmol/L Chloride 109 H (98-107) mmol/L Carbon Dioxide 15 L (22-30) mmol/L BUN 22 H (9-20) mg/dL Glucose 73 L (74-99) mg/dL Calcium 8.0 L (8.4-10.2) mg/dL Total Bilirubin 1.6 H (0.2-1.3) mg/dL Total Protein 6.2 L (6.3-8.2) g/dL Albumin 3.4 L (3.5-5.0) g/dL Assessment and Plan (1) Incarcerated umbilical hernia Current Visit: Yes Status: Acute Code(s): K42.0 - UMBILICAL HERNIA WITH OBSTRUCTION, WITHOUT GANGRENE SNOMED Code(s): 817329700 (2) Small bowel obstruction Current Visit: Yes Status: Acute Code(s): K56.609 - UNSP INTESTNL OBST, UNSP TO PARTIAL VERSUS COMPLETE OBST SNOMED Code(s): 535901535
--- NOTE | 2021-01-19 08:01 | P.PCN ---
Date of Procedure: 01/19/21 Description of Procedure: PREOPERATIVE DIAGNOSIS: Dysphagia Esophageal stricture POSTOPERATIVE DIAGNOSIS: Distal esophageal stenosis Duodenitis Gastritis OPERATION: Esophagogastroduodenoscopy with rigid dilator over the guidewire 48 54 Fr with dilation Esophagogastroduodenoscopy with cold forceps biopsies and 7/duodenum SURGEON: Hannah Baumann MD ANESTHESIA: MAC. INDICATIONS: The patient is a 65-year-old male who presents with dysphagia including has history of esophageal stricture with dilations. Benefits and risks of the procedure were described. Informed consent was obtained. DESCRIPTION: The patient was brought into the endoscopy suite and laid in the left lateral decubitus position. After a timeout was confirmed, the procedure was initiated. An Olympus gastroscope was passed into the posterior oropharynx where lower esophageal stenosis at 38 cm from the incisors was identified. The scope was passed down to the distal esophagus. To address the upper esophageal stenosis, rigid dilator over guidewire was selected. Next using an Georgian rigid dilator, a guidewire was placed through the gastroscope. Next the scope was withdrawn. A 48-Fr followed by 54-Belarusian rigid Georgian dilator was passed carefully along the posterior oropharynx to 50 cm and left in place for 2-3 minutes stretch. The dilator was withdrawn including the guidewire. The scope was reentered along the posterior oropharynx with no findings of full-thickness tear of the lower esophageal sphincter. Additional findings below. Within the stomach, cold forceps biopsies were obtained obtained. The scope was advanced into the second portion of the duodenum with polypoid lesions identified and also cold forceps biopsies obtained. The large esophageal valve was evaluated with Hill grade 1 lower esophageal valve. LA grade B erosive esophagitis was identified. No full-thickness injury was encountered. The GI tract was desufflated. The patient tolerated the procedure well. FINDINGS: Lower esophageal stenosis at 38 cm from the incisors dilated 48 to 54-Belarusian rigid dilator Diaphragmatic hiatus at 39 cm from the incisors Squamocolumnar junction 39 cm from the incisors. Cold forceps biopsies obtained of the antrum Duodenum with polypoid lesions, cold forceps biopsies obtained LA grade B erosive esophagitis Hill grade 1 lower esophageal valve. RECOMMENDATIONS: Omeprazole 40 mg daily Carafate 1 g twice a day Repeat upper endoscopy 4 weeks
[2021-01-19] MEDS ORDERED: BUPIVACAIN-EPI 0.25%-1:200,000 30 ML VIAL SQ ONE (08:09)
[2021-01-19] MEDS: LACTATED RINGERS 1,000 ML IV SCH ×2 (08:19→08:42)
[2021-01-19] MEDS ORDERED: fentaNYL (PF) 50 MCG/ML 2 ML AMP ONE (08:37)
[2021-01-19] MEDS ORDERED: ePHEDrine 50 MG/ML 1 ML AMP ONE (08:37)
[2021-01-19] MEDS ORDERED: NEOSTIGMINE 1 MG/ML 10 ML VIAL ONE (08:37)
[2021-01-19] MEDS ORDERED: ROCURONIUM 10 MG/ML (5 ML VIAL) IV ONE (08:37)
[2021-01-19] MEDS ORDERED: PROPOFOL 10 MG/ML 20 ML VIAL IV ONE (08:37)
[2021-01-19] MEDS ORDERED: SUCCINYLCHOLINE CHLORIDE 100 MG/5 ML SYR IV ONE (08:37)
[2021-01-19] MEDS ORDERED: MIDAZOLAM 2 MG/2 ML VIAL ONE (08:37)
[2021-01-19] MEDS ORDERED: DEXAMETHASONE SOD PHOSPHATE 4 MG/ML 1 ML VIAL ONE (08:37)
[2021-01-19] MEDS ORDERED: KETAMINE 10 MG/ML 20 ML VIAL ONE (08:37)
[2021-01-19] MEDS ORDERED: PHENYLEPHRINE-0.9% NACL SYG 1,000 MCG/10 ML SYRINGE ONE (08:37)
[2021-01-19] MEDS ORDERED: GLYCOPYRROLATE 0.2 MG/ML 2 ML VIAL ONE (08:37)
[2021-01-19] MEDS ORDERED: lisinopriL 10 MG TAB PO SCH (09:00)
[2021-01-19] MEDS ORDERED: LACTATED RINGERS 1,000 ML IV ONE (10:13)
[2021-01-19] MEDS ORDERED: METOCLOPRAMIDE 5 MG/ML 2 ML VIAL IVP PRN (10:37)
[2021-01-19] MEDS ORDERED: ACETAMINOPHEN IV (For NPO) 1,000 MG in EMPTY BAG 1 BAG IVPB ONE (10:37)
[2021-01-19] MEDS ORDERED: ONDANSETRON 4 MG/2 ML VIAL IVP PRN (10:37)
--- NOTE | 2021-01-19 10:48 | P.OP ---
Date of Procedure: 01/19/21 Description of Procedure: SURGEON: TAMMY GONZALEZ MD PREOPERATIVE DIAGNOSES: 1. Incarcerated ventral hernia with small bowel obstruction 2. Hypertensive heart disease 3. Depressive disorder 4. History of colorectal cancer 5. Gastroesophageal reflux disease 6. History of ileostomy reversal with colectomy 7. Status post hydrocelectomy POSTOPERATIVE DIAGNOSES: 1. Incarcerated ventral hernia with small bowel obstruction, 2-cm 2. Hypertensive heart disease 3. Depressive disorder 4. History of colorectal cancer 5. Gastroesophageal reflux disease 6. History of ileostomy reversal with colectomy 7. Status post hydrocelectomy OPERATION: 1. Robotic-assisted da Mary Xi laparoscopic reduction of small bowel obstruction with repair of initial incarcerated umbilical hernia 2 cm without mesh ANESTHESIA: General with local ESTIMATED BLOOD LOSS: 5 mL. SPECIMENS: None. COMPLICATIONS: None. FINDINGS: 1. Initial incarcerated umbilical hernia, 2 cm with incarceration of small bowel causing a small bowel obstruction 2. Reduction of small bowel demonstrates viable small bowel intestine with peristalsis and resolved ischemia of proximal ileum 3. Right indirect inguinal hernia without incarceration, 2 cm 4. Left indirect inguinal hernia without incarceration, 1 cm INDICATIONS: The patient is a 65-year-old male who presents with acute small bowel obstruction and intractable nausea and vomiting. Computed tomography scan findings consistent with incarcerated umbilical hernia. Surgical intervention with laparoscopic versus robotic and open techniques were reviewed. Placement of mesh was also reviewed. Benefits and risks were thoroughly described. Informed consent was obtained. DESCRIPTION OF PROCEDURE: The patient was brought into the operating room and laid in supine position. After general induction, the abdomen had been prepped and draped in standard sterile fashion. Ioban draping was also placed. Prior to incision, a timeout protocol was confirmed with surgical team regarding the patient's name including procedures to be performed. The robot was primed prior to the procedure. A field block using local anesthetic was placed along hernia site including the proposed port sites. Initial incision was made with an #11 blade along the left upper quadrant. A 0 degree 5 mm laparoscopic trocar entry was performed. Diagnostic laparoscopy demonstrated an incarcerated umbilical hernia. Three 8 mm trocars were placed along the left lateral abdominal wall. Placements of the ports were 15 cm from the target anatomy and 9 cm apart. An assessory 12 mm port was placed along the epigastrium. The da Mary Xi robot was previously primed, prepped and draped then docked along the left side of the patient. I then sat at the robot Da Mary Xi console where working arms of the robot were scissors, needle pile driver operator, vessel sealer and graspers placed by the sales assistant. Attention was brought to the umbilicus where an incarcerated umbilical hernia containing small bowel was gently reduced. The small bowel was viable without infarction. The fascia was explored and infarcted preperitoneal fat was reduced and excised from incarcerated umbilical hernia. Dimensions of the umbilical hernia 2 cm. The incarcerated contents was reduced as the peritoneal fat was cleaned from the abdominal wall. Next, hemostasis was checked with cautery. The hernia defect of 2-cm was oversewn using #1 VLOC with fascial imbrication 3. The small intestine was assessed from the base of cecum proximally towards the ligament of Treitz. Small bowel caliber changes from the ileum to the mid jejunum confirmed site of bowel obstruction at previously incarcerated proximal ileum. Enteric contents was milked past the previously incarcerated small bowel. Small bowel is viable with peristalsis. A final endoscopic imaging was obtained. All instruments and pneumoperitoneum were evacuated from the abdominal cavity. The da Mary Xi robot was undocked from the patient. I re-scrubbed into the case for closure of incisions. The 12 mm port was removed and oversewn 0 Vicryl and Bill Ivey. The incisions were reapproximated using 4-0 Monocryl in an interrupted subcuticular fashion. Exofin liquid glue was applied to the skin after cleansing the skin with normal saline and dilute hydrogen peroxide. At the end of the procedure, needle, sponge, and instrument count had been verified correct by rf test technician. Nasogastric tube was upsized from 10-Maldivian to 18-Maldivian. The patient was taken to the postanesthesia care unit in stable condition.
[2021-01-19] MEDS: PIPERACILLIN-TAZOBACTAM 3.375 GM in SODIUM CHLORIDE 0.9% 100 ML IVPB SCH ×2 (11:50→16:33)
[2021-01-19] MEDS: SODIUM CHLORIDE 0.9% 1,000 ML IV SCH ×4 (13:35→22:53)
[2021-01-19] MEDS: PANTOPRAZOLE 40 MG/10 ML VIAL IV SCH (13:35)
[2021-01-19] MEDS: KETOROLAC 30 MG/ML 1 ML VIAL IVP SCH ×2 (13:37→17:48)
[2021-01-19] MEDS: ENOXAPARIN 30 MG/0.3 ML SYRINGE SQ SCH (13:46)
--- NOTE | 2021-01-19 15:26 | P.PN ---
Subjective Progress Note Date: 01/19/21 CHIEF COMPLAINT: Bowel obstruction HISTORY OF PRESENT ILLNESS: The patient is a 65-year-old male admitted for small bowel obstruction. He is status post reduction of incarcerated hernia for small bowel obstruction and ventral hernia repair. Pain is tolerable. Images from his surgery reviewed. No flatus. ROS: No bowel movements. No fevers or chills. No new chest pain. No productive sputum PHYSICAL EXAM: VITAL SIGNS: Reviewed CONSTITUTIONAL: Well developed and in no acute distress. EYES: Conjuctivae without sclera icterus. Extraocular movements grossly intact. HEAD, EARS, NOSE, THROAT: Moist buccal mucosa. Head is atraumatic, normocephalic. Hears conversational speech. No nasal drainage. NECK: No thyroidomegaly. RESPIRATORY: Non-labored respirations and equal bilateral excursions. CARDIOVASCULAR: Palpable 2+ radial pulses. ABDOMEN: Dressing intact. MUSCULOSKELETAL: No gross deformity of the lower extremities noted. No clubbing. No cyanosis. SKIN: Good skin turgor. Well perfused. NEUROLOGIC: Cranial nerves I through XII grossly intact. No focal or lateralizing signs. PSYCH: Appropriate affect. Alert and oriented to person, place and time. CLINICAL LABS: Reviewed. ASSESSMENT: 1. Incarcerated ventral hernia with small bowel obstruction 2. Hemoconcentration due to dehydration PLAN: 1. Await flatus 2. Continue ice chips and popsicles 3. Will add simethicone for gas. 4. Start bowel regimen. Objective - Vital Signs Vital signs: Vital Signs Temp 97.8 F 01/19/21 10:41 Pulse 83 01/19/21 12:36 Resp 18 01/19/21 11:41 BP 155/86 01/19/21 12:36 Pulse Ox 96 01/19/21 11:41 Intake & Output 01/18/21 01/19/21 01/19/21 18:59 06:59 18:59 Intake Total 3270 1600 1675 Output Total 2000 415 Balance 3270 -400 1260 Weight 77.111 kg Intake: IV 1675 Intake, IV Titration 3270 1600 Amount Piperacillin-Tazobactam 3 100 100 .375 gm In Sodium Chloride 0.9% 100 ml @ 25 mls/hr IVPB Q8HR [facility] Rx# :[id number] Sodium Chloride 0.9% 1, 1170 1500 000 ml @ 130 mls/hr IV . Q7H42M [facility] Rx#:[id number] Sodium Chloride 0.9% 2, 1999 000 ml @ 999 mls/hr IV . Q2H1M [facility] Rx#:[id number] Output: Gastric Drainage 1999 100 Urine 310 Estimated Blood Loss 5 Other: Voiding Method Toilet Toilet Urinal Urinal # Voids 5 - Labs CBC & Chem 7: 01/18/21 17:27 01/19/21 05:49 Labs: Abnormal Lab Results - Last 24 Hours (Table) 01/18/21 01/18/21 01/19/21 Range/Units 17:27 17:27 05:49 Lymphocytes # 0.8 L (1.0-4.8) k/uL Sodium 133 L (137-145) mmol/L Potassium 5.6 H (3.5-5.1) mmol/L Chloride 109 H (98-107) mmol/L Carbon Dioxide 15 L (22-30) mmol/L BUN 22 H (9-20) mg/dL Glucose 73 L (74-99) mg/dL Calcium 8.0 L (8.4-10.2) mg/dL Total Bilirubin 1.6 H (0.2-1.3) mg/dL Total Protein 6.2 L (6.3-8.2) g/dL Albumin 3.4 L (3.5-5.0) g/dL Assessment and Plan (1) Incarcerated umbilical hernia Current Visit: Yes Status: Acute Code(s): K42.0 - UMBILICAL HERNIA WITH OBSTRUCTION, WITHOUT GANGRENE SNOMED Code(s): 933429222 (2) Small bowel obstruction Current Visit: Yes Status: Acute Code(s): K56.609 - UNSP INTESTNL OBST, UNSP TO PARTIAL VERSUS COMPLETE OBST SNOMED Code(s): 582064654
--- NOTE | 2021-01-19 16:29 | P.PN ---
Subjective Progress Note Date: 01/19/21 Patient is a 65 yo CM with HTN, prior tobaco abuse, and colon cancer who initially presented for abdominal pain and nausea. He underwent an extensive evaluation and was found to have an incarcerated umbilical hernia with small bowel obstruction on CAT scan. He was admitted to surgery and were asked to consult for medical management. Patient seen and examined at bedside. He states the pain is manageable, had some light headedness but this has dissipated. General: non toxic, no distress, appears at stated age Derm: warm, dry Head: atraumatic, normocephalic, symmetric Eyes: EOMI, no lid lag, anicteric sclera Mouth: no lip lesion, mucus membranes moist Cardiovascular: S1S2 reg, no murmur, positive posterior tibial pulse bilateral, Lungs: CTA bilateral, no rhonchi, no rales , no accessory muscle use Abdominal: soft, nontender to palpation, no guarding, no appreciable organomegaly Ext: no gross muscle atrophy, no edema, no contractures Neuro: CN II-XI grossly intact, no focal neuro deficits Psych: Alert, oriented, appropriate affect Incarcerated umbilical Hernia with small bowel obstruction - s/p robotic hernia repair - management per surgery - zosyn - reglan - entereg HTN - Hold lisinopril in light of recent hyperkalemia - follow blood pressure Hyperkalemia, resolved -Monitor potassium closely with Toradol -Repeat BMP in a.m. Objective - Vital Signs Vital signs: Vital Signs Temp 97.8 F 01/19/21 10:41 Pulse 83 01/19/21 12:36 Resp 18 01/19/21 11:41 BP 155/86 01/19/21 12:36 Pulse Ox 96 01/19/21 11:41 Intake & Output 01/18/21 01/19/21 01/19/21 18:59 06:59 18:59 Intake Total 3270 1600 1675 Output Total 2000 415 Balance 3270 -400 1260 Weight 77.111 kg Intake: IV 1675 Intake, IV Titration 3270 1600 Amount Piperacillin-Tazobactam 3 100 100 .375 gm In Sodium Chloride 0.9% 100 ml @ 25 mls/hr IVPB Q8HR [facility] Rx# :[id number] Sodium Chloride 0.9% 1, 1170 1500 000 ml @ 130 mls/hr IV . Q7H42M [facility] Rx#:[id number] Sodium Chloride 0.9% 2, 2000 000 ml @ 999 mls/hr IV . Q2H1M [facility] Rx#:[id number] Output: Gastric Drainage 1999 100 Urine 310 Estimated Blood Loss 5 Other: Voiding Method Toilet Toilet Urinal Urinal # Voids 5 - Labs CBC & Chem 7: 01/18/21 17:27 01/19/21 05:49 Labs: Abnormal Lab Results - Last 24 Hours (Table) 01/18/21 01/18/21 01/19/21 Range/Units 17:27 17:27 05:49 Lymphocytes # 0.8 L (1.0-4.8) k/uL Sodium 133 L (137-145) mmol/L Potassium 5.6 H (3.5-5.1) mmol/L Chloride 109 H (98-107) mmol/L Carbon Dioxide 15 L (22-30) mmol/L BUN 22 H (9-20) mg/dL Glucose 73 L (74-99) mg/dL Calcium 8.0 L (8.4-10.2) mg/dL Total Bilirubin 1.6 H (0.2-1.3) mg/dL Total Protein 6.2 L (6.3-8.2) g/dL Albumin 3.4 L (3.5-5.0) g/dL
[2021-01-19] MEDS: SIMETHICONE 40 MG/0.6 ML DROPS 2,000 MG/30 ML BOTTLE PO SCH ×2 (17:48→20:43)
[2021-01-19] MEDS: CALCIUM CARBONATE 500 MG CHEWABLE PO PRN (20:41)
[2021-01-19] MEDS: ALVIMOPAN 12 MG CAPSULE PO SCH (20:42)
[2021-01-19 20:43] VITALS: RESP 16
[2021-01-20] MEDS: PIPERACILLIN-TAZOBACTAM 3.375 GM in SODIUM CHLORIDE 0.9% 100 ML IVPB SCH ×3 (00:35→16:24)
[2021-01-20] MEDS: KETOROLAC 30 MG/ML 1 ML VIAL IVP SCH ×4 (00:35→18:17)
[2021-01-20] MEDS: SODIUM CHLORIDE 0.9% 1,000 ML IV SCH (04:11)
[2021-01-20 07:21] LABS: Basophils % (A) 0 %; Eosinophils # (A) 0.1 k/uL (0-0.7); Eosinophils % (A) 4 %; HCT 40.4 % (39.0-53.0); HGB 14.7 gm/dL (13.0-17.5); Hyperchromasia Slight; Lymphocytes # (A) 0.6 k/uL (1.0-4.8); Lymphocytes % (A) 19 %; MCH 31.4 pg (25.0-35.0); MCHC 36.5 g/dL (31.0-37.0); MCV 85.9 fL (80.0-100.0); Mean Platelet Volume 7.2; Monocytes # (A) 0.3 k/uL (0-1.0); Monocytes % (A) 11 %; Neutrophils % (A) 64 %; Platelet Count 244 k/uL (150-450); RDW 13.2 % (11.5-15.5); WBC 3.2 k/uL (3.8-10.6)
[2021-01-20] MEDS: ALVIMOPAN 12 MG CAPSULE PO SCH ×2 (08:54→20:36)
[2021-01-20] MEDS: PANTOPRAZOLE 40 MG/10 ML VIAL IV SCH (08:55)
[2021-01-20] MEDS: SIMETHICONE 40 MG/0.6 ML DROPS 2,000 MG/30 ML BOTTLE PO SCH ×4 (08:55→20:36)
[2021-01-20] MEDS: LACTATED RINGERS 1,000 ML IV SCH (09:34)
[2021-01-20 11:45] LABS: African American GFR (CKD) 115.2 (60.0-200.0); Albumin 3.2 g/dL (3.8-4.9); Albumin/Globulin Ratio 1.88 (1.60-3.17); Anion Gap 11.7 mmol/L (10.00-18.00); BUN/Creat Ratio 20.53 Ratio (12.00-20.00); Calcium 8.2 mg/dL (8.7-10.3); Carbon Dioxide 22.6 mmol/L (20.0-27.5); Globulin 1.7 g/dL (1.6-3.3); Non-African American GFR(CKD) 99.4 (60.0-200.0); Potassium 3.7 mmol/L (3.5-5.5); Total Bilirubin 0.5 mg/dL (0.30-1.20)
[2021-01-20] MEDS: ENOXAPARIN 30 MG/0.3 ML SYRINGE SQ SCH (12:32)
[2021-01-20] MEDS: lisinopriL 20 MG TAB PO SCH (13:59)
--- NOTE | 2021-01-20 15:06 | P.PN ---
Subjective Progress Note Date: 01/20/21 (delayed charting seen at 0910) Principal diagnosis: abdominal pain Patient is a 65 yo CM with HTN, prior tobaco abuse, and colon cancer who initially presented for abdominal pain and nausea. He underwent an extensive evaluation and was found to have an incarcerated umbilical hernia with small bowel obstruction on CAT scan. He was admitted to surgery and were asked to consult for medical management. He underwent robotic repair umbilical hernia without any immediate postoperative complications. NG tube in place. Patient seen and examined at bedside. He reports passing gas, he has been up and walking in the hallways. He has been eating lots of popsicles and ice chips to the psych popsicles and is asking for increased intake. He still has an NG tube in place. Nursing is unsure but believes there is 2 L of output yesterday. I think this is secondary to have any popsicles he has been taking. General: non toxic, no distress, appears at stated age Derm: warm, dry Head: atraumatic, normocephalic, symmetric Eyes: EOMI, no lid lag, anicteric sclera Mouth: no lip lesion, mucus membranes dry, NG tube in place Cardiovascular: S1S2 reg, no murmur, positive posterior tibial pulse bilateral, Lungs: CTA bilateral, no rhonchi, no rales , no accessory muscle use Abdominal: soft, tender to palpation diffusely, no guarding, no appreciable organomegaly Ext: no gross muscle atrophy, no edema, no contractures Neuro: CN II-XI grossly intact, no focal neuro deficits Psych: Alert, oriented, appropriate affect Incarcerated umbilical Hernia with small bowel obstruction - s/p robotic hernia repair - management per surgery - zosyn - reglan - entereg -NG tube HTN, accelerated -Resume lisinopril - follow blood pressure Hyperkalemia, resolved Thank you for allowing us to participate in the care of this pleasant patient. Do not hesitate to contact us with questions. Someone can be reached from the [facility] hospitalist group all hours of the day at [phone] or via perfect serve. Objective - Vital Signs Vital signs: Vital Signs Temp 98.6 F 01/20/21 12:15 Pulse 72 01/20/21 12:15 Resp 16 01/20/21 12:15 BP 176/89 01/20/21 12:15 Pulse Ox 96 01/20/21 12:15 Intake & Output 01/19/21 01/20/21 01/20/21 18:59 06:59 18:59 Intake Total 1675 1660 Output Total 715 1700 700 Balance 960 -40 -700 Weight 77.111 kg Intake: IV 1675 Intake, IV Titration 1660 Amount Piperacillin-Tazobactam 3 100 .375 gm In Sodium Chloride 0.9% 100 ml @ 25 mls/hr IVPB Q8HR [facility] Rx# :[id number] Sodium Chloride 0.9% 1, 1560 000 ml @ 130 mls/hr IV . Q7H42M [facility] Rx#:[id number] Output: Gastric Drainage 400 1700 100 Urine 310 600 Estimated Blood Loss 5 Other: Voiding Method Toilet Toilet Urinal Urinal # Voids 1 - Labs CBC & Chem 7: 01/20/21 06:35 01/20/21 06:35 Labs: Abnormal Lab Results - Last 24 Hours (Table) 01/20/21 01/20/21 Range/Units 06:35 06:35 WBC 3.2 L (3.8-10.6) k/uL Lymphocytes # 0.6 L (1.0-4.8) k/uL BUN/Creatinine Ratio 20.53 H (12.00-20.00) Ratio Calcium 8.2 L (8.7-10.3) mg/dL Total Protein 5.0 L (6.2-8.2) g/dL Albumin 3.2 L (3.8-4.9) g/dL
--- NOTE | 2021-01-20 15:10 | P.PN ---
Subjective Progress Note Date: 01/20/21 CHIEF COMPLAINT: Bowel obstruction HISTORY OF PRESENT ILLNESS: The patient is a 65-year-old male admitted for small bowel obstruction. He is status post reduction of incarcerated hernia for small bowel obstruction and ventral hernia repair. He is passing flatus. ROS: No bowel movements. No fevers or chills. No new chest pain. No productive sputum PHYSICAL EXAM: VITAL SIGNS: Reviewed CONSTITUTIONAL: Well developed and in no acute distress. EYES: Conjuctivae without sclera icterus. Extraocular movements grossly intact. HEAD, EARS, NOSE, THROAT: Moist buccal mucosa. Head is atraumatic, norm ocephalic. Hears conversational speech. No nasal drainage. NECK: No thyroidomegaly. RESPIRATORY: Non-labored respirations and equal bilateral excursions. CARDIOVASCULAR: Palpable 2+ radial pulses. ABDOMEN: Dressing intact. MUSCULOSKELETAL: No gross deformity of the lower extremities noted. No clubbing. No cyanosis. SKIN: Good skin turgor. Well perfused. NEUROLOGIC: Cranial nerves I through XII grossly intact. No focal or lateralizing signs. PSYCH: Appropriate affect. Alert and oriented to person, place and time. CLINICAL LABS: Reviewed. WBC 3.2 and low. Hgb normal 14.7. ASSESSMENT: 1. Incarcerated ventral hernia with small bowel obstruction PLAN: 1. I personally removed his NG tube 2. Start full liquid diet 3. Medicine for management of hypertension 4. Disposition home in 24 hrs. Objective - Vital Signs Vital signs: Vital Signs Temp 98.6 F 01/20/21 12:15 Pulse 72 01/20/21 12:15 Resp 16 01/20/21 12:15 BP 176/89 01/20/21 12:15 Pulse Ox 96 01/20/21 12:15 Intake & Output 01/19/21 01/20/21 01/20/21 18:59 06:59 18:59 Intake Total 1675 1660 Output Total 715 1700 700 Balance 960 -40 -700 Weight 77.111 kg Intake: IV 1675 Intake, IV Titration 1660 Amount Piperacillin-Tazobactam 3 100 .375 gm In Sodium Chloride 0.9% 100 ml @ 25 mls/hr IVPB Q8HR [facility] Rx# :[id number] Sodium Chloride 0.9% 1, 1560 000 ml @ 130 mls/hr IV . Q7H42M [facility] Rx#:[id number] Output: Gastric Drainage 400 1700 100 Urine 310 600 Estimated Blood Loss 5 Other: Voiding Method Toilet Toilet Urinal Urinal # Voids 1 - Labs CBC & Chem 7: 01/20/21 06:35 01/20/21 06:35 Labs: Abnormal Lab Results - Last 24 Hours (Table) 01/20/21 01/20/21 Range/Units 06:35 06:35 WBC 3.2 L (3.8-10.6) k/uL Lymphocytes # 0.6 L (1.0-4.8) k/uL BUN/Creatinine Ratio 20.53 H (12.00-20.00) Ratio Calcium 8.2 L (8.7-10.3) mg/dL Total Protein 5.0 L (6.2-8.2) g/dL Albumin 3.2 L (3.8-4.9) g/dL Assessment and Plan (1) Incarcerated umbilical hernia Current Visit: Yes Status: Acute Code(s): K42.0 - UMBILICAL HERNIA WITH OBSTRUCTION, WITHOUT GANGRENE SNOMED Code(s): 791067774 (2) Small bowel obstruction Current Visit: Yes Status: Acute Code(s): K56.609 - UNSP INTESTNL OBST, UNSP TO PARTIAL VERSUS COMPLETE OBST SNOMED Code(s): 710529579
[2021-01-21] MEDS: SODIUM CHLORIDE 0.9% 1,000 ML IV SCH ×2 (00:16→05:14)
[2021-01-21] MEDS: KETOROLAC 30 MG/ML 1 ML VIAL IVP SCH ×2 (00:16→05:13)
[2021-01-21] MEDS: PIPERACILLIN-TAZOBACTAM 3.375 GM in SODIUM CHLORIDE 0.9% 100 ML IVPB SCH ×2 (00:17→10:09)
[2021-01-21] MEDS: LACTATED RINGERS 1,000 ML IV SCH (10:07)
[2021-01-21] MEDS: lisinopriL 20 MG TAB PO SCH (10:08)
[2021-01-21] MEDS: PANTOPRAZOLE 40 MG/10 ML VIAL IV SCH (10:08)
[2021-01-21] MEDS: SIMETHICONE 40 MG/0.6 ML DROPS 2,000 MG/30 ML BOTTLE PO SCH ×2 (10:08→14:00)
[2021-01-21 11:56] VITALS: BP 136/86; PULSE 67; TEMP 98
--- NOTE | 2021-01-21 12:53 | P.DS ---
Providers Date of admission: 01/17/21 10:21 Expected date of discharge: 01/21/21 Attending physician: Hannah Baumann Consults: 01/18/21 12:49 Consult Physician Routine Consulting Provider: Shawna Blake Consult Reason/Comments: Medical management Do you want consulting provider notified?: Yes 01/18/21 13:29 Consult Physician Routine Consulting Provider: [facility] Consult Reason/Comments: [facility] Do you want consulting provider notified?: Yes Primary care physician: Juancarlos Whitaker - Discharge Diagnosis(es) (1) Incarcerated umbilical hernia Current Visit: Yes Status: Acute (2) Small bowel obstruction Current Visit: Yes Status: Acute Hospital Course: CHIEF COMPLAINT: Bowel obstruction HISTORY OF PRESENT ILLNESS: The patient is a 65-year-old male admitted for small bowel obstruction. He is status post reduction of incarcerated hernia for small bowel obstruction and ventral hernia repair. He is passing flatus and having bowel movements. Pain is controlled without narcotics. ROS: No bowel movements. No fevers or chills. No new chest pain. No productive sputum PHYSICAL EXAM: VITAL SIGNS: Reviewed CONSTITUTIONAL: Well developed and in no acute distress. EYES: Conjuctivae without sclera icterus. Extraocular movements grossly intact. HEAD, EARS, NOSE, THROAT: Moist buccal mucosa. Head is atraumatic, normocephalic. Hears conversational speech. No nasal drainage. NECK: No thyroidomegaly. RESPIRATORY: Non-labored respirations and equal bilateral excursions. CARDIOVASCULAR: Palpable 2+ radial pulses. ABDOMEN: No peritonitis. Incisions intact. MUSCULOSKELETAL: No gross deformity of the lower extremities noted. No clubbing. No cyanosis. SKIN: Good skin turgor. Well perfused. NEUROLOGIC: Cranial nerves I through XII grossly intact. No focal or lateral izing signs. PSYCH: Appropriate affect. Alert and oriented to person, place and time. CLINICAL LABS: Reviewed. ASSESSMENT: 1. Incarcerated ventral hernia with small bowel obstruction PLAN: 1. He is doing well and stable for discharge 2. Medical reconciliation performed 3. Discharge instructions reviewed. Patient Condition at Discharge: Good Plan - Discharge Summary Discharge Rx Participant: Yes New Discharge Prescriptions: New Acetaminophen Tab [Tylenol Tab] 1,000 mg PO Q6HR PRN #30 tablet PRN Reason: Pain Ibuprofen [Motrin] 600 mg PO Q8HR PRN #30 tab PRN Reason: Pain Continue [place]-3 Fatty Acids/Fish Oil [Fish Oil 1,000 mg Softgel] 1 cap PO DAILY Multivitamins, Thera [Multivitamin (formulary)] 1 tab PO DAILY lisinopriL 30 mg PO DAILY Esomeprazole Magnesium [NexIUM 24Hr] 20 mg PO DAILY Discontinued Yeast And Fungal Oral Supplement 1 cap PO DAILY Flaxseed Oil 1,000 mg PO DAILY Discharge Medication List Esomeprazole Magnesium [NexIUM 24Hr] 20 mg PO DAILY 01/17/21 [History] Multivitamins, Thera [Multivitamin (formulary)] 1 tab PO DAILY 01/17/21 [History] [place]-3 Fatty Acids/Fish Oil [Fish Oil 1,000 mg Softgel] 1 cap PO DAILY 01/17/21 [History] lisinopriL 30 mg PO DAILY 01/17/21 [History] Acetaminophen Tab [Tylenol Tab] 1,000 mg PO Q6HR PRN #30 tablet 01/21/21 [Rx] Ibuprofen [Motrin] 600 mg PO Q8HR PRN #30 tab 01/21/21 [Rx] Follow up Appointment(s)/Referral(s): Juancarlos Whitaker MD [Primary Care Provider] - 1-2 days Hannah Baumann MD [STAFF PHYSICIAN] - 01/23/21 (Call to confirm time) Patient Instructions/Handouts: Laparoscopic Herniorrhaphy (IP), Ventral Hernia Repair (DC) Activity/Diet/Wound Care/Special Instructions: May not return to work until cleared by your surgeon No lifting over 4 pounds in 4 weeks until Feb 18. May shower. No bath tub soaks for two weeks until Feb 02 Diet as tolerated. Use Tylenol, simethicone and ibuprofen or Aleve scheduled for the next 24-48 hours for best pain relief. Use ice along incisions for today to prevent swelling. Discharge Disposition: HOME SELF-CARE
[2021-01-21] MEDS: ENOXAPARIN 30 MG/0.3 ML SYRINGE SQ SCH (14:00)
--- NOTE | 2021-01-21 18:56 | P.PN ---
Subjective Progress Note Date: 01/21/21 (delayed charting seen at 0820) Principal diagnosis: abdominal pain Patient is a 65 yo CM with HTN, prior tobaco abuse, and colon cancer who initially presented for abdominal pain and nausea. He underwent an extensive evaluation and was found to have an incarcerated umbilical hernia with small bowel obstruction on CAT scan. He was admitted to surgery and were asked to consult for medical management. He underwent robotic repair umbilical hernia without any immediate postoperative complications. NG tube in place. Patient seen and examined at bedside. Doing well, multiple BM, tolerating diet, pain controlled. General: non toxic, no distress, appears at stated age Derm: warm, dry Head: atraumatic, normocephalic, symmetric Eyes: EOMI, no lid lag, anicteric sclera Mouth: no lip lesion, mucus membranes dry, NG tube in place Cardiovascular: S1S2 reg, no murmur, positive posterior tibial pulse bilateral, Lungs: CTA bilateral, no rhonchi, no rales , no accessory muscle use Abdominal: soft, tender to palpation diffusely, no guarding, no appreciable organomegaly Ext: no gross muscle atrophy, no edema, no contractures4 Neuro: CN II-XI grossly intact, no focal neuro deficits Psych: Alert, oriented, appropriate affect Incarcerated umbilical Hernia with small bowel obstruction - s/p robotic hernia repair - management per surgery - zosyn - reglan - entereg HTN, accelerated - Lisinopril - follow blood pressure Hyperkalemia, resolved med rec addressed, medically optimized for discharge. Thank you for allowing us to participate in the care of this pleasant patient. Do not hesitate to contact us with questions. Someone can be reached from the [facility] hospitalist group all hours of the day at [phone] or via perfect serve. Objective - Vital Signs Vital signs: Vital Signs Temp 98.0 F 01/21/21 11:54 Pulse 67 01/21/21 11:54 Resp 16 01/21/21 11:54 BP 136/86 01/21/21 11:54 Pulse Ox 96 01/21/21 11:54 Intake & Output 01/20/21 01/21/21 01/21/21 18:59 06:59 18:59 Intake Total 1660 Output Total 1000 500 Balance -1000 1160 Intake: Intake, IV Titration 1660 Amount Piperacillin-Tazobactam 3 100 .375 gm In Sodium Chloride 0.9% 100 ml @ 25 mls/hr IVPB Q8HR [facility] Rx# :[id number] Sodium Chloride 0.9% 1, 1560 000 ml @ 130 mls/hr IV . Q7H42M [facility] Rx#:[id number] Output: Gastric Drainage 100 Urine 900 500 Other: Voiding Method Toilet Toilet Urinal Urinal # Voids 1 # Bowel Movements 1 - Labs CBC & Chem 7: 01/20/21 06:35 01/20/21 06:35
== END 2021-01-21 14:38 | disposition home or self-care (01) | DRG 355 ==
LOC: SUPCPDRO 07:01 → EC 07:01 → 5NMEDONC 10:21
PROVIDERS: ADMIT Surgery Plastic and Reconstructive Surgery; ATTEND Surgery Plastic and Reconstructive Surgery
PROC: 0D9670Z Drainage of Stomach with Drainage Device, Via Natural or Artificial Opening (ICD-10-PCS; 2021-01-17)
PROC: 8E0W4CZ Robotic Assisted Procedure of Trunk Region, Percutaneous Endoscopic Approach (ICD-10-PCS; principal; 2021-01-19 08:15)
PROC: 0WQF4ZZ Repair Abdominal Wall, Percutaneous Endoscopic Approach (ICD-10-PCS; principal; 2021-01-19 08:15)
DX: K43.6 Other and unspecified ventral hernia with obstruction, without gangrene (principal); D72.829 Elevated white blood cell count, unspecified; I11.9 Hypertensive heart disease without heart failure; Z20.822 Contact with and (suspected) exposure to COVID-19; E87.5 Hyperkalemia; K40.20 Bilateral inguinal hernia, without obstruction or gangrene, not specified as recurrent; K21.9 Gastro-esophageal reflux disease without esophagitis; E86.0 Dehydration; F32.A Depression, unspecified; Z79.899 Other long term (current) drug therapy; Z87.891 Personal history of nicotine dependence; Z85.048 Personal history of other malignant neoplasm of rectum, rectosigmoid junction, and anus; Z90.49 Acquired absence of other specified parts of digestive tract; Z87.438 Personal history of other diseases of male genital organs; Z98.890 Other specified postprocedural states
CPT/HCPCS: 36415; 74177; 80048; 80053; 81001; 82150; 83605; 83690; 85025; 85610; 85730; 87635; 88302; 93005; 96361; 96374; 99285

== ENCOUNTER → 2021-02-06 | Outpatient (CLI) | payer MEDICARE ==
[2021-02-06 16:02] LABS: African American GFR (CKD) >90 (>60 ml/min/1.73 sqM); Blood Urea Nitrogen 10 mg/dL (9-20); Non-African American GFR(CKD) >90 (>60 ml/min/1.73 sqM)
--- NOTE | 2021-02-07 08:39 | CT ---
EXAMINATION TYPE: CT ChestAbdPelvis w con DATE OF EXAM: 02/06/2021 COMPARISON: Most recent CT January 17, 2021 and older studies. PET/CT November 23, 2016. HISTORY: h/o rectal CA, obs fro mets, recent hernia sx CT DLP: 959.5 mGycm. Automated Exposure Control for Dose Reduction was Utilized. CONTRAST: CT scan of the thorax, abdomen and pelvis is performed with oral and with IV Contrast, patient inject ed with 100 mL of Isovue 300. FINDINGS: LUNGS: Mild biapical scarring redemonstrated. Some dependent atelectasis in the right lower lobe agai n seen. No suspicious new greater than 5 mm noncalcified pulmonary nodules or masses. There is no ple ural effusion or pneumothorax seen. The tracheobronchial tree is patent. MEDIASTINUM: There are persistent prominent thoracic lymph nodes including paratracheal and pericarin al region along with AP level and bilateral hilar regions not significantly changed in size from prio r studies. No enlarged lymph nodes clearly identified. No cardiomegaly or pericardial effusion is see n. Fairly moderate coronary artery calcification redemonstrated. Stable enlarged 1.2 x 1.0 cm low den se lymph node anterior to ascending aorta axial image 33. LIVER/GB: Background diffuse fatty infiltration liver redemonstrated. Scattered simple-appearing thin -walled cysts throughout the liver redemonstrated. Stable prominent right hepatic lobe. PANCREAS: No significant abnormality is seen. SPLEEN: Prominent splenule inferior splenic hilum axial image 64 is redemonstrated. ADRENALS: No significant abnormality is seen. KIDNEYS: Symmetric cortical medullary uptake and excretion without hydronephrosis seen bilaterally. BOWEL: Oral contrast does not reach level terminal ileum making evaluation of distal bowel slightly s uboptimal. No suspicious small or large bowel dilatation. Persistent surgical change sigmoid rectal c olon in the pelvis. Distal anastomosis axial image 108 posteriorly remains intact. Second set of sutu res superior and anterior to this new from July 2020 was present January 17, 2021 shows more promine nt adjacent fecal filled bowel loops, anterior loop has air-fluid level. This appears distinct from t he sigmoid rectal colon likely within ileal bowel loops. GENITAL ORGANS: No gross abnormality seen. LYMPH NODES: No new greater than 1cm abdominal or pelvic lymph nodes are appreciated. Few prominent b ut subcentimeter retroperitoneal lymph nodes redemonstrated . OSSEOUS STRUCTURES: Advanced degenerative change of bilateral hip joints with joint space narrowing a nd spurring is present. Serpiginous sclerotic signal right femoral head suspicious for avascular necr osis noted. Some lesser involvement in the left hip is likely present. No bony fragmentation currentl y. Ktil-tl-igtxeqky multilevel facet arthropathy in the lower lumbar spine. Mlva-ae-dxxcugjg multilev el spurring of the thoracolumbar spine. OTHER: Interval repair of umbilical hernia with persistent focus of fluid at umbilicus. IMPRESSION: Interval successful surgical reduction of obstructing umbilical hernia. New focal fecal prominent small bowel loops in the pelvis of uncertain significance as there is overa ll no gross bowel dilatation to suggest overall bowel obstruction. No new concerning mass or adenopat hy seen to suggest active neoplastic recurrence.
== END | disposition home or self-care (01) ==
LOC: RADCTMAIN 15:25
PROVIDERS: ATTEND Internal Medicine Hematology & Oncology
DX: J98.11 Atelectasis (principal); J98.4 Other disorders of lung; Z85.048 Personal history of other malignant neoplasm of rectum, rectosigmoid junction, and anus
CPT/HCPCS: 82565; 84520; 71260; 74177; 36415; Q9967

== ENCOUNTER → 2021-07-24 | Outpatient (CLI) | payer MEDICARE ==
[2021-07-24 12:39] LABS: African American GFR (CKD) >90 (>60 ml/min/1.73 sqM); Blood Urea Nitrogen 14 mg/dL (9-20); Non-African American GFR(CKD) >90 (>60 ml/min/1.73 sqM)
--- NOTE | 2021-07-24 13:58 | CT ---
EXAMINATION TYPE: CT ChestAbdPelvis w con DATE OF EXAM: 07/24/2021 COMPARISON: Most recent CT February 06, 2021 and older CTs HISTORY: f/u rectal ca CT DLP: 1248 mGycm. Automated Exposure Control for Dose Reduction was Utilized. CONTRAST: CT scan of the thorax, abdomen and pelvis is performed with oral and with IV Contrast, patient inject ed with 100 mL of Isovue 300. FINDINGS: LUNGS: Mild biapical scarring redemonstrated. Some dependent atelectasis in the right lower lobe agai n seen. No suspicious new greater than 5 mm noncalcified pulmonary nodules or masses. There is no ple ural effusion or pneumothorax seen. The tracheobronchial tree is patent. MEDIASTINUM: There are persistent prominent thoracic lymph nodes including paratracheal and paracarin al region along with AP level and bilateral hilar regions redemonstrated. Stable hypodense lymph node or central nodule measuring 1.3 x 1.2 cm axial image 35 from most recent prior CT studies. No new en larged lymph nodes clearly identified. No cardiomegaly or pericardial effusion is seen. Fairly modera te coronary artery calcification redemonstrated. Stable enlarged 1.2 x 1.0 cm low dense lymph node an terior to ascending aorta axial image 35 redemonstrated. LIVER/GB: Background diffuse fatty infiltration liver redemonstrated. Scattered simple-appearing thin -walled cysts throughout the liver redemonstrated. Stable prominent right hepatic lobe. PANCREAS: No significant abnormality is seen. SPLEEN: Prominent splenule inferior splenic hilum axial image 64 is redemonstrated. ADRENALS: No significant abnormality is seen. KIDNEYS: Symmetric cortical medullary uptake and excretion without hydronephrosis seen bilaterally. BOWEL: Oral contrast reaches level of the splenic flexure on current study. No suspicious small or la rge bowel dilatation. Persistent surgical change sigmoid rectal colon in the pelvis axial image 110 r edemonstrated. Axzr-yu-jbxlxgkh fecal prominence splenic flexure through the rectum on current study. GENITAL ORGANS: No gross abnormality seen. LYMPH NODES: No new greater than 1cm abdominal or pelvic lymph nodes are appreciated. Few prominent b ut subcentimeter retroperitoneal lymph nodes redemonstrated . OSSEOUS STRUCTURES: Advanced degenerative change of bilateral hip joints with joint space narrowing a nd spurring is present. 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 No new bony fragmentation . Moderate multilevel facet arthropathy in the mid to lower lumbar spine. Oguw-wi-xidqmemv multilevel s purring of the thoracolumbar spine. OTHER: No significant abnormality. IMPRESSION: No suspicious new or enlarging mass or adenopathy to suggest active neoplastic recurrence . Slightly more prominent mild to moderate distal colonic fecal stasis on current study.
== END | disposition home or self-care (01) ==
LOC: RADCTMAIN 11:33
PROVIDERS: ATTEND Internal Medicine Hematology & Oncology
DX: C20 Malignant neoplasm of rectum (principal); K56.41 Fecal impaction
CPT/HCPCS: 82565; 84520; 71260; 74177; 36415; Q9967

== ENCOUNTER → 2021-09-12 | Outpatient (CLI) | payer MEDICARE ==
[2021-09-12 17:22] LABS: Basophils # (A) 0.03 X 10*3/uL (0.00-0.10); Basophils % (A) 0.7 %; Eosinophils # (A) 0.19 X 10*3/uL (0.04-0.35); Eosinophils % (A) 4.2 %; HGB 15.7 g/dL (13.0-17.0); Immature Grans, Automated 0.4 %; Lymphocytes % (A) 24.3 %; MCH 28.5 pg (27.0-32.0); MCHC 32.7 g/dL (32.0-37.0); MCV 87.1 fL (80.0-97.0); Mean Platelet Volume 9.8 fL (9.5-12.2); Monocytes # (A) 0.42 X 10*3/uL (0.20-1.00); Monocytes % (A) 9.3 %; NRBC Per 100 WBC 0 /100 WBCS (0.0-0.0); Neutrophils # (A) 2.77 X 10*3/uL (1.80-7.70); Neutrophils % (A) 61.1 %; Platelet Count 216 X 10*3/uL (140-440); RBC 5.51 X 10*6/uL (4.40-5.60); WBC 4.53 X 10*3/uL (4.50-10.00)
[2021-09-12 23:05] LABS: ALT 36 U/L (10-49); AST 29 U/L (14-35); African American GFR (CKD) 110.3 (60.0-200.0); Albumin 4.3 g/dL (3.8-4.9); Albumin/Globulin Ratio 1.86 (1.60-3.17); Alkaline Phosphatase 73 U/L (41-126); BUN/Creat Ratio 16.91 Ratio (12.00-20.00); Blood Urea Nitrogen 12.6 mg/dL (9.0-27.0); Carbon Dioxide 22.2 mmol/L (20.0-27.5); Chloride 108 mmol/L (96-109); Chol/HDL Ratio 3.78 Ratio; Globulin 2.3 g/dL (1.6-3.3); Glucose 93 mg/dL (70-110); Non-African American GFR(CKD) 95.2 (60.0-200.0); Sodium 141 mmol/L (135-145); Total Protein 6.6 g/dL (6.2-8.2)
== END | disposition home or self-care (01) ==
LOC: LABWHC1 10:00
PROVIDERS: ATTEND Physician Assistant
DX: Z12.5 Encounter for screening for malignant neoplasm of prostate (principal); I10 Essential (primary) hypertension; E78.5 Hyperlipidemia, unspecified
CPT/HCPCS: 80061; 80053; 85025; 36415; G0103

== ENCOUNTER → 2022-01-28 | Outpatient (CLI) | payer MEDICARE ==
[2022-01-28 11:05] LABS: African American GFR (CKD) >90 (>60 ml/min/1.73 sqM); Blood Urea Nitrogen 9 mg/dL (9-20); Non-African American GFR(CKD) >90 (>60 ml/min/1.73 sqM)
--- NOTE | 2022-01-28 13:11 | CT ---
EXAMINATION TYPE: CT ChestAbdPelvis w con DATE OF EXAM: 01/28/2022 COMPARISON: 07/24/2021, 01/25/2020 HISTORY: f/u rectal/colon ca CT DLP: 1944 mGycm Automated exposure control for dose reduction was used. CONTRAST: CT scan of the chest, abdomen and pelvis is performed with Oral Contrast and with IV Contrast, patien t injected with 70cc mL of Isovue 300. FINDINGS: LUNGS: Mild biapical scarring redemonstrated. Some dependent atelectasis in the right lower lobe agai n seen. No suspicious new greater than 5 mm noncalcified pulmonary nodules or masses. There is no ple ural effusion or pneumothorax seen. The tracheobronchial tree is patent. At subsegmental changes blossom g the medial aspect superior segment right lower lobe a 3 on the basis of atelectasis. Mild emphysema tous changes noted. MEDIASTINUM: There are persistent prominent thoracic lymph nodes including paratracheal and paracarin al region along with AP level and bilateral hilar regions redemonstrated. There is a pathologic lymph node in the right perihilar region posterior to the right main pulmonary artery axial image 33 measu ring with the 1.4 cm in short axis and previously measuring 1.3 cm in short axis. . No new enlarged lymph nodes clearly identified. No cardiomegaly or pericardial effusion is seen. Mo derate coronary artery calcification redemonstrated. Stable enlarged 1.2 x 1.0 cm low dense lymph nod e anterior to ascending aorta axial image 33 redemonstrated. LIVER/GB: Background diffuse fatty infiltration liver redemonstrated. Scattered simple-appearing thin -walled cysts throughout the liver redemonstrated. Stable prominent right hepatic lobe. PANCREAS: No significant abnormality is seen. SPLEEN: Accessory spleen incidentally noted ADRENALS: No significant abnormality is seen. KIDNEYS: No significant abnormality is seen. BOWEL: No suspicious small or large bowel dilatation. Persistent surgical change sigmoid rectal colo n in the pelvis. Xndd-in-yfqhlsqt fecal prominence splenic flexure through the rectum on current stud y. LYMPH NODES: No greater than 1 cm abdominal or pelvic lymph nodes are appreciated. OSSEOUS STRUCTURES: Advanced degenerative change of bilateral hip joints with joint space narrowing a nd spurring is present. Sclerosis consistent with avascular necrosis in the bilateral femoral heads o n current study. No new bony fragmentation. Moderate multilevel facet arthropathy in the mid to lower lumbar spine. Amzz-hj-gklipkcb multilevel spurring of the thoracolumbar spine. OTHER: Prostate is enlarged. A small anterior abdominal wall periumbilical fat-containing hernia. IMPRESSION: 1. Stable mediastinal and right hilar adenopathy unchanged in size from prior exam. No new evidence o f metastasis. The nodule posterior to the right main pulmonary arterial in the right perihilar region is retrospectively stable from additional remote study of 01/25/2020.
== END | disposition home or self-care (01) ==
LOC: RADCTMAIN 10:30
PROVIDERS: ATTEND Internal Medicine Hematology & Oncology
DX: C20 Malignant neoplasm of rectum (principal); R91.1 Solitary pulmonary nodule; R59.0 Localized enlarged lymph nodes
CPT/HCPCS: 82565; 84520; 71260; 74177; 36415; Q9967

== ENCOUNTER → 2022-08-02 | Outpatient (CLI) | payer MEDICARE ==
[2022-08-02 09:51] LABS: African American GFR (CKD) >90 (>60 ml/min/1.73 sqM); Blood Urea Nitrogen 14 mg/dL (9-20); Non-African American GFR(CKD) >90 (>60 ml/min/1.73 sqM)
--- NOTE | 2022-08-02 12:24 | CT ---
EXAMINATION TYPE: CT ChestAbdPelvis w con DATE OF EXAM: 08/02/2022 COMPARISON: 01/28/2022 and 07/24/2021 HISTORY: 67-year-old male C20, Follow up to colon CA TECHNIQUE: Contiguous axial scanning of the chest, abdomen, and pelvis performed with IV Contrast, pa tient injected with 100 mL of Isovue 300. Delayed images through the kidneys were obtained. Coronal/s agittal reconstructions performed. CT DLP: 1155.4 mGycm Automated exposure control for dose reduction was used. FINDINGS: CHEST: The heart is normal size without pericardial effusion. LAD coronary artery calcifications are present . Conventional branching anatomy. The aorta is normal caliber. Mildly enlarged lower paratracheal, prevascular space, and right hilar lymph nodes remain unchanged m easuring up to 1.8 cm. No progressive lymphadenopathy seen. Mild centrilobular emphysema. Minimal biapical pleural parenchymal scarring. Some focal interstitial scarring along the posteromedial right mid lung. No consolidation or pleural effusion. ABDOMEN: Tiny hiatal hernia. A couple hypodensities anterior left liver lobe measuring 2.2 and 1.0 cm are unchanged, suspected hep atic cysts. Low-attenuation hepatic parenchyma. No new hepatic lesions are seen. Portal venous system is patent. No biliary ductal dilatation. Gallbladder, and adrenal glands, kidneys, spleen with hilar splenule, and pancreas within normal limi ts. No dilated small bowel, free fluid, or free air. No mesenteric or retroperitoneal lymphadenopathy. Normal appendix. There is moderate stool burden. Oral contrast progressed through the mid transverse colon. There is a staple line from prior resection and reanastomosis at the rectosigmoid junction. Mild sigm oid diverticulosis without pericolonic inflammatory change. PELVIS: Bladder is urine distended. Prostate gland measures 4.6 cm wide. Patulous right inguinal canal. No ab normal fluid collection in the pelvis or pelvic lymphadenopathy. BONES: Severe degenerative change in both hips. [facility] mid to lower thoracic spine. No osseous process. IMPRESSION: 1. UNCHANGED MEDIASTINAL AND RIGHT HILAR LYMPHADENOPATHY MEASURING UP TO 1.8 CM POSSIBLY RELATED TO C HRONIC POSTINFLAMMATORY ETIOLOGY. 2. PREVIOUS DISTAL COLON RESECTION WITH RECTOSIGMOID ANASTOMOSIS. 3. NO EVIDENCE FOR RECURRENCE OR METASTATIC DISEASE. 4. INCIDENTAL: HEPATIC STEATOSIS AND MILD SIGMOID DIVERTICULOSIS.
== END | disposition home or self-care (01) ==
LOC: RADCTMAIN 09:07
PROVIDERS: ATTEND Internal Medicine Hematology & Oncology
DX: C20 Malignant neoplasm of rectum (principal); K76.0 Fatty (change of) liver, not elsewhere classified; K57.30 Diverticulosis of large intestine without perforation or abscess without bleeding; R59.0 Localized enlarged lymph nodes
CPT/HCPCS: 82565; 84520; 71260; 74177; 36415; Q9967

== ENCOUNTER → 2023-09-03 | Outpatient (CLI) | payer MEDICARE ==
--- NOTE | 2023-09-03 09:21 | US ---
EXAMINATION TYPE: US abdomen limited DATE OF EXAM: 09/03/2023 COMPARISON: 08/02/2022 CT CLINICAL INDICATION: Male, 68 years old with history of R94.5 ELEVATED LFT'S; elevated LFTs TECHNIQUE: Multiple sonographic images of the right upper quadrant are obtained. FINDINGS: EXAM MEASUREMENTS: Liver Length: 17.6 cm Gallbladder Wall: .2 cm CBD: .4 cm Right Kidney: 11.2 x 4.5 x 4.6 cm SECOND OPERATOR NOTES: Pancreas: Obscured by bowel gas Liver: Increased attenuation 2 anechoic areas seen largest 2.2 x 2.5 x 1.8 cm compatible with mini homero complex cysts. These are similar to 08/02/2022 CT Gallbladder: No stones seen Evidence for sonographic Martinez's sign: No CBD: wnl Right Kidney: No hydronephrosis or masses seen IMPRESSION: 1. Hepatic steatosis. No evidence for solid mass. 2. No acute process.
== END | disposition home or self-care (01) ==
LOC: RADUSWWP 08:01
PROVIDERS: ATTEND Student in an Organized Health Care Education/Training Program
DX: K76.0 Fatty (change of) liver, not elsewhere classified (principal); R94.5 Abnormal results of liver function studies
CPT/HCPCS: 76705